=== PATIENT | male | born 1990 | race Caucasian/White ===

== ENCOUNTER 2021-09-11 20:08 | Emergency (ER) | payer SELFPAY ==
[~2021-09-11] VITALS: Ht 73 cm; Wt 72.6 kg
[2021-09-11] MEDS ORDERED: AMOXICILLIN 500 MG (POLYMOX) CAP PO STA (20:24)
[2021-09-11] MEDS ORDERED: ONDANSETRON 4 MG (ZOFRAN) ORAL DISSOLVE TAB SL STA (20:24)
[2021-09-11] MEDS ORDERED: KETOROLAC 60 MG/2 ML VIAL IM STA (20:24)
--- NOTE | 2021-09-11 20:32 | ED EENT ---
History of Present Illness General Chief Complaint: Dental Problems/Pain Stated Complaint: DENTAL PAIN/JAW PAIN/HEADACHE/NAUSEA Source: patient Exam Limitations: no limitations History of Present Illness Date Seen by Provider: Sep 11, 2021 Time Seen by Provider: 20:17 Initial Comments Here with complaint of right sided lower jaw posterior pain near the wisdom tooth that is now radiating up towards the judaism. Is associated with nausea due to the pain. He did take 2 ibuprofen about 5 hours ago and states that that did help the pain. Does have ongoing problems with his teeth and gum disease. Recently moved back here from [place] and is working at [employer]. Denies allergies to medicines. Takes an antianxiety medicine intermittently but has no new prescriptions for that for last couple of years. Otherwise does not take any other medicines. He knows he needs to follow with a dentist and will work on that. Denies other concerns. Timing/Duration: gradual, this morning Severity: moderate Location: mouth, dental Prearrival Treatment: over the counter meds Associated Symptoms: No drooling, No ear drainage, No fever, No nasal congestion/drainage, No sinus infection; tooth pain Allergies and Home Medications Allergies Coded Allergies: No Known Drug Allergies (Unverified , 09/11/21) Patient Home Medication List Home Medication List Reviewed: Yes Review of Systems Review of Systems Constitutional: No chills, No fever Ears: See HPI Nose: denies congestion, denies pain Mouth: see HPI, pain Throat: no symptoms reported Respiratory: No cough, No short of breath Gastrointestinal: nausea; No vomiting Neurological: See HPI Past Parxncf-Nhejbn-Htdprc Hx Patient Social History Tobacco Use?: No Use of E-Cig and/or Vaping dev: No Substance use?: Yes Substance type: Marijuana Substance frequency: Once in a while Past Medical History Surgeries: No Respiratory: No Cardiac: No Neurological: No Psychosocial: Yes Anxiety Family Medical History Reviewed and Corrections made No Pertinent Family Hx Physical Exam Height, Weight, BMI Height: '" Weight: lbs. oz. kg; BMI Method: General Appearance: WD/WN, no apparent distress Mouth/Throat: pharynx normal, dental tenderness (Right lower posterior near wisdom tooth.), other (Does have some erythema from around the tooth along the gumline and intermittently throughout teeth. No significant dental caries noted. No abscess or purulent drainage noted.) Neck: full range of motion, supple Cardiovascular: regular rate, rhythm, no murmur Respiratory: lungs clear, normal breath sounds Neurologic/Psychiatric: alert, oriented x 3 Skin: normal color, warm/dry Progress/Results/Core Measures Results/Orders My Orders Orders - PERLA SEPULVEDA MD Toradol 60 Mg Im (09/11/21 20:24) Zofran Sl (09/11/21 20:24) Amoxicillin 1000mg Po (09/11/21 20:24) Progress Progress Note : Progress Note Seen and evaluated. Patient with nausea currently. Zofran 4 mg sublingual. Amoxicillin 1000 mg p.o. Toradol 60 mg IM ordered. I did discuss with him the importance of follow-up with a dentist which she states he will. Discharged home with return precautions. Patient verbalized understanding of instructions and agreement with plan. Departure Impression Primary Impression: Acute pericoronitis Additional Impression: Pain, dental Disposition: 01 HOME, SELF-CARE Condition: Stable Departure-Patient Inst. Decision time for Depature: 20:34 Referrals: NO,LOCAL PHYSICIAN (PCP/Family) Primary Care Physician Patient Instructions: Dental Pain ED, Gingivitis (DC) Add. Discharge Instructions: All discharge instructions reviewed with patient and/or family. Voiced understanding. You may take ibuprofen 600 mg every 8 hours as needed for pain. You may also take Tylenol/acetaminophen 1000 mg every 8 hours as needed for pain. You may rinse with salt water 2-3 times daily. You may mix salt water solution by using 1 teaspoon of salt in 1 cup of water. Swish for 30 seconds and then spit. Do not drink solution. It is very important that you follow-up with a dentist. Take medications as directed. Return for worse pain, swelling, weakness, breathing problems or other concerns as needed. Scripts Amoxicillin (Amoxicillin) 500 Mg Capsule 500 MG PO TID, #30 CAP 0 Refills Prov: PERLA SEPULVEDA MD 09/11/21 PERLA SEPULVEDA MD Sep 11, 2021 20:32
[2021-09-11] MEDS ORDERED: AMOX500C2 PO (20:35)
[2021-09-11 20:48] VITALS: BP 145/108
== END 2021-09-11 20:49 | disposition home or self-care (01) ==
LOC: ER 20:12
DX: K05.20 Aggressive periodontitis, unspecified (principal); K08.89 Other specified disorders of teeth and supporting structures; F41.9 Anxiety disorder, unspecified; Z79.899 Other long term (current) drug therapy
CPT/HCPCS: 99284

== ENCOUNTER 2021-11-16 16:13 | Emergency (ER) | payer SELFPAY ==
[~2021-11-16] VITALS: Ht 187 cm; Wt 72.7 kg
[2021-11-16 16:13] VITALS: BP 139/94
[~2021-11-16 16:13] MED LIST: AMOX500C2 PO
--- NOTE | 2021-11-16 16:23 | ED General ---
General Stated Complaint: WEAKNESS LOW BLOOD SUGAR History of Present Illness Date Seen by Provider: Nov 16, 2021 Time Seen by Provider: 16:12 Initial Comments 31-year-old male presents by EMS he was in bed and unable to get out of bed, without assistance. EMS was called and his glucose was 37. D10 was started by IV and Glucose at ED arrival was 166. His father is diabetic, he has had no history of hyper or hypoglycemia. He reports drinking a pint of vodka this morning when he awoke, he didn't eat anything and went back to bed. Last food intake was pizza at 2100 last pm. He had no other liquid intake today. He reports history of alcoholism, with daily drinking. He was alert and oriented but weak when EMS arrived to transport. He is alert and answering all questions appropriately. Patient reports polyuria and polydipsia however denies polyphagia. He recently moved back to this area from [place] and was moving boxes most of yesterday. Timing/Duration: 1-3 Hours Severity: Mild Associated Systoms: No Chest Pain, No Cough; Diaphoresis; No Fever/Chills, No Headaches, No Loss of Appetite; Malaise; No Nausea/Vomiting, No Rash, No Seizure, No Shortness of Air, No Syncope; Weakness (improving. ) Allergies and Home Medications Allergies Coded Allergies: No Known Drug Allergies (Unverified , 09/11/21) Patient Home Medication List Home Medication List Reviewed: Yes Amoxicillin (Amoxicillin) 500 Mg Capsule, 500 MG PO TID Prescribed by: PERLA SEPULVEDA on 09/11/212034 Review of Systems Review of Systems Constitutional: see HPI; No dizziness, No fever; malaise, weakness EENTM: see HPI, no symptoms reported Respiratory: no symptoms reported, see HPI Cardiovascular: no symptoms reported, see HPI Gastrointestinal: no symptoms reported, see HPI Genitourinary: no symptoms reported, see HPI Musculoskeletal: no symptoms reported, see HPI Skin: no symptoms reported, see HPI All Other Systems Reviewed Negative Unless Noted: Yes Past Eunvrcx-Icpatr-Kktlyd Hx Immunizations Up To Date First/Initial COVID19 Vaccinat: 05/05 Past Medical History Surgeries: No Respiratory: No Cardiac: No Neurological: No Psychosocial: Yes Anxiety Family Medical History Reviewed Nursing Family Hx No Pertinent Family Hx Physical Exam Vital Signs Vital Signs - First Documented 11/16/21 16:13 Temp 35.2 Pulse 87 Resp 18 B/P (MAP) 139/94 (109) Pulse Ox 99 O2 Delivery Room Air Capillary Refill : Height, Weight, BMI Height: '" Weight: lbs. oz. kg; 136.00 BMI Method: General Appearance: No Apparent Distress, WD/WN HEENT: PERRL/EOMI, TMs Normal, Normal ENT Inspection, Pharynx Normal, Moist Mucous Membranes Neck: Full Range of Motion, Normal Inspection, Non Tender, Supple Respiratory: Chest Non Tender, Lungs Clear, Normal Breath Sounds Cardiovascular: Regular Rate, Rhythm, No Edema, No Murmur, Normal Peripheral Pulses Gastrointestinal: Normal Bowel Sounds, Non Tender, Soft Neurologic/Psychiatric: Alert, Oriented x3, No Motor/Sensory Deficits, Normal Mood/Affect Skin: Normal Color, Warm/Dry Progress/Results/Core Measures Suspected Sepsis SIRS Temperature: Pulse: Respiratory Rate: Laboratory Tests 11/16/21 16:25: White Blood Count 15.7H Blood Pressure / Mean: Laboratory Tests 11/16/21 16:25: Creatinine 0.89, Platelet Count 184, Total Bilirubin 0.4 Results/Orders Lab Results Laboratory Tests Test 11/16/21 16:24 11/16/21 16:25 11/16/21 16:35 11/16/21 17:55 Range/Units Glucometer 216 H 315 H 70-110 MG/DL White Blood Count 15.7 H 4.3-11.0 10^3/uL Red Blood Count 5.01 4.30-5.52 10^6/uL Hemoglobin 15.8 13.3-17.7 g/dL Hematocrit 47 40-54 % Mean Corpuscular Volume 94 80-99 fL Mean Corpuscular Hemoglobin 32 25-34 pg Mean Corpuscular Hemoglobin Concent 34 32-36 g/dL Red Cell Distribution Width 13.3 10.0-14.5 % Platelet Count 184 130-400 10^3/uL Mean Platelet Volume 10.0 9.0-12.2 fL Immature Granulocyte % (Auto) 1 % Neutrophils (%) (Auto) 85 H 42-75 % Lymphocytes (%) (Auto) 10 L 12-44 % Monocytes (%) (Auto) 3 0-12 % Eosinophils (%) (Auto) 0 0-10 % Basophils (%) (Auto) 0 0-10 % Neutrophils # (Auto) 13.4 H 1.8-7.8 10^3/uL Lymphocytes # (Auto) 1.6 1.0-4.0 10^3/uL Monocytes # (Auto) 0.5 0.0-1.0 10^3/uL Eosinophils # (Auto) 0.1 0.0-0.3 10^3/uL Basophils # (Auto) 0.1 0.0-0.1 10^3/uL Immature Granulocyte # (Auto) 0.1 0.0-0.1 10^3/uL Neutrophils % (Manual) 88 % Lymphocytes % (Manual) 9 % Monocytes % (Manual) 3 % Blood Morphology Comment NORMAL Sodium Level 141 135-145 MMOL/L Potassium Level 4.0 3.6-5.0 MMOL/L Chloride Level 100 98-107 MMOL/L Carbon Dioxide Level 21 21-32 MMOL/L Anion Gap 20 H 5-14 MMOL/L Blood Urea Nitrogen 10 7-18 MG/DL Creatinine 0.89 0.60-1.30 MG/DL Estimat Glomerular Filtration Rate 98 BUN/Creatinine Ratio 11 Glucose Level 218 H 70-105 MG/DL Calcium Level 8.4 L 8.5-10.1 MG/DL Corrected Calcium 8.0 L 8.5-10.1 MG/DL Total Bilirubin 0.4 0.1-1.0 MG/DL Aspartate Amino Transf (AST/SGOT) 30 5-34 U/L Alanine Aminotransferase (ALT/SGPT) 28 0-55 U/L Alkaline Phosphatase 74 40-136 U/L Total Protein 7.1 6.4-8.2 GM/DL Albumin 4.5 3.2-4.5 GM/DL Serum Alcohol 239 H <10 MG/DL Urine Color YELLOW Urine Clarity CLEAR Urine pH 5.5 5-9 Urine Specific [place] 1.025 H 1.016-1.022 Urine Protein NEGATIVE NEGATIVE Urine Glucose (UA) 3+ H NEGATIVE Urine Ketones 2+ H NEGATIVE Urine Nitrite NEGATIVE NEGATIVE Urine Bilirubin NEGATIVE NEGATIVE Urine Urobilinogen 0.2 < = 1.0 MG/DL Urine Leukocyte Esterase NEGATIVE NEGATIVE Urine RBC (Auto) NEGATIVE NEGATIVE Urine RBC NONE /HPF Urine WBC 0-2 /HPF Urine Squamous Epithelial Cells RARE /HPF Urine Renal Epithelial Cells NONE /HPF Urine Crystals NONE /LPF Urine Bacteria NEGATIVE /HPF Urine Casts NONE /LPF Urine Mucus NEGATIVE /LPF Urine Culture Indicated NO Urine Opiates Screen NEGATIVE NEGATIVE Urine Oxycodone Screen NEGATIVE NEGATIVE Urine Methadone Screen NEGATIVE NEGATIVE Urine Propoxyphene Screen NEGATIVE NEGATIVE Urine Barbiturates Screen NEGATIVE NEGATIVE Ur Tricyclic Antidepressants Screen NEGATIVE NEGATIVE Urine Phencyclidine Screen NEGATIVE NEGATIVE Urine Amphetamines Screen NEGATIVE NEGATIVE Urine Methamphetamines Screen NEGATIVE NEGATIVE Urine Benzodiazepines Screen NEGATIVE NEGATIVE Urine Cocaine Screen NEGATIVE NEGATIVE Urine Cannabinoids Screen POSITIVE H NEGATIVE My Orders Orders - [employer] Alcohol (11/16/21 16:23) Cbc With Automated Diff (11/16/21 16:23) Comprehensive Metabolic Panel (11/16/21 16:23) Drug Screen Stat (Urine) (11/16/21 16:23) Ua Culture If Indicated (11/16/21 16:23) Ed Iv/Invasive Line Start (11/16/21 16:24) D5 1/2 Ns 1000 Ml Iv Solution (Dextrose (11/16/21 16:30) Manual Differential (11/16/21 16:25) Accucheck Stat ONCE (11/16/21 17:48) Medications Given in ED Current Medications Medications Dose Ordered Sig/Moi Route Start Time Stop Time Status Last Admin Dose Admin Dextrose/Sodium Chloride 1,000 ml @ 0 mls/hr ONCE ONCE IV 11/16/21 16:30 11/16/21 16:31 DC 11/16/21 17:08 1,000 MLS/HR Vital Signs/I&O 11/16/21 11/16/21 16:13 18:11 Temp 35.2 Pulse 87 76 Resp 18 18 B/P (MAP) 139/94 (109) Pulse Ox 99 99 O2 Delivery Room Air Room Air Capillary Refill : Progress Note : Time: 16:12 Progress Note Patient seen and evaluated, will discontinue the D10 since his blood sugar has improved. He is alert and oriented. Will obtain labs. He is taking water with no complaints. 1740 labs reviewed with patient. He denies any concerns at this time. He received 500 ml of D51/2 NS and accucheck is 315. Discussed importance of establishing with PCP and assuring he is eating, when consuming alcohol discharge instructions and return precautions reviewed. Departure Impression Primary Impression: Hypoglycemia Additional Impression: Alcohol dependence Qualified Codes: F10.20 - Alcohol dependence, uncomplicated Disposition: 01 HOME, SELF-CARE Condition: Improved Departure-Patient Inst. Decision time for Depature: 17:40 Referrals: [facility]/RITA BENITEZ,LOCAL PHYSICIAN (PCP) Primary Care Physician Patient Instructions: Alcohol Use Disorder (DC), Low Blood Sugar, Adult (DC) Add. Discharge Instructions: Make sure you eat small, frequent meals. Especially when drinking alcohol. Establish care with [facility]. Return to the Emergency Dept for new, urgent health care needs. MANSOOR VALVERDE Nov 16, 2021 16:23
[2021-11-16] MEDS ORDERED: D5 1/2 NS 1000 ML IV SOLUTION 1,000 ML IV ONE (16:30)
[2021-11-16 16:40] LABS: BILIRUBIN,URINE NEGATIVE (NEGATIVE); CLARITY,URINE CLEAR; COLOR,URINE YELLOW; GLUCOSE, URINE (UA) 3+ (NEGATIVE); KETONES,URINE 2+ (NEGATIVE); LEUKOCYTE ESTERASE ,URINE NEGATIVE (NEGATIVE); NITRITE,URINE NEGATIVE (NEGATIVE); PH,URINE 5.5 (5-9); PROTEIN,URINE NEGATIVE (NEGATIVE)
[2021-11-16 16:43] LABS: BASOPHILS # (AUTO) 0.1 10^3/uL (0.0-0.1); BASOPHILS % (AUTO) 0 % (0-10); EOSINOPHILS # (AUTO) 0.1 10^3/uL (0.0-0.3); EOSINOPHILS % (AUTO) 0 % (0-10); HEMATOCRIT 47 % (40-54); HEMOGLOBIN 15.8 g/dL (13.3-17.7); LYMPHOCYTES # (AUTO) 1.6 10^3/uL (1.0-4.0); LYMPHOCYTES % (AUTO) 10 % (12-44); MEAN CORPUSCULAR HEMOGLOBIN 32 pg (25-34); MEAN CORPUSCULAR HGB CONC 34 g/dL (32-36); MEAN CORPUSCULAR VOLUME 94 fL (80-99); MONOCYTES # (AUTO) 0.5 10^3/uL (0.0-1.0); MONOCYTES % (AUTO) 3 % (0-12); NEUTROPHILS # (AUTO) 13.4 10^3/uL (1.8-7.8); NEUTROPHILS % (AUTO) 85 % (42-75); PLATELET COUNT 184 10^3/uL (130-400); WHITE BLOOD COUNT 15.7 10^3/uL (4.3-11.0)
[2021-11-16 16:44] LABS: ALBUMIN 4.5 GM/DL (3.2-4.5)
[2021-11-16 16:46] LABS: CALCIUM 8.4 MG/DL (8.5-10.1)
[2021-11-16 16:47] LABS: BACTERIA,URINE NEGATIVE /HPF; SQUAMOUS EPITHELIAL CELL,UR RARE /HPF; WBC,URINE 0-2 /HPF
[2021-11-16 16:47] LABS: TOTAL PROTEIN 7.1 GM/DL (6.4-8.2)
[2021-11-16 16:48] LABS: BILIRUBIN,TOTAL 0.4 MG/DL (0.1-1.0)
[2021-11-16 16:50] LABS: CREATININE SERUM 0.89 MG/DL (0.60-1.30)
[2021-11-16 16:51] LABS: AMPHETAMINE SCREEN, URINE NEGATIVE (NEGATIVE); BARBITURATE SCREEN URINE NEGATIVE (NEGATIVE); BENZODIAZEPINES SCREEN URINE NEGATIVE (NEGATIVE); CANNABINOID SCREEN, URINE POSITIVE (NEGATIVE); COCAINE SCREEN URINE NEGATIVE (NEGATIVE); METHADONE STAT NEGATIVE (NEGATIVE); METHAMPHETAMINE SCREEN URINE S NEGATIVE (NEGATIVE); OPIATE SCREEN URINE NEGATIVE (NEGATIVE); OXYCODONE STAT NEGATIVE (NEGATIVE); PROPOXYPHENE STAT NEGATIVE (NEGATIVE); TRICYCLIC ANTIDEPRESSANTS SCRE NEGATIVE (NEGATIVE)
[2021-11-16 17:00] LABS: LYMPHOCYTES % (MANUAL) 9 %; MONOCYTES % (MANUAL) 3 %; NEUTROPHILS % (MANUAL) 88 %; RBC MORPH NORMAL
== END 2021-11-16 18:11 | disposition home or self-care (01) ==
LOC: EDUNIT# 16:13 → ER 16:14
DX: E16.2 Hypoglycemia, unspecified (principal); F10.20 Alcohol dependence, uncomplicated
CPT/HCPCS: 80053; 80306; 81000; 82947; 85007; 85027; 99284; G0480; 36415; 80320

== ENCOUNTER → 2022-04-27 | Emergency (ER) | payer SELFPAY ==
[~2022-04-27] MED LIST changes: +LACTATED RINGERS 1,000 ML IV ONE; +LORA-404 PO; +LORazepam 0.5 MG (ATIVAN) TABLET PO STA; +LORazepam INJ 2 MG/ML (ATIVAN) VIAL IVP ONE; +MIRT-68 PO; +NS IV 1000 ML 1,000 ML IV SCH; +NS IV 1000 ML 1,000 ML IV STA; +OLANZapine 5 MG ODT (ZyPREXA ZYDIS) PO ONE; +hydrOXYzine (ATARAX) 10 MG TAB PO ONE; +hydrOXYzine (VISTARIL/ATARAX) 25 MG capsule/tablet PO STA
--- NOTE | 2022-04-27 22:13 | ED Psychosocial ---
General Chief Complaint: Suicidal Ideation Risk Stated Complaint: ETOH/SUICIDAL Source: patient Exam Limitations: no limitations (CANDIE SIN) History of Present Illness Date Seen by Provider: Apr 27, 2022 Time Seen by Provider: 22:11 Initial Comments Patient is a 31-year-old male who presents ED with alcohol abuse, anxiety and increased depression. Patient reports drinking a pint of vodka today. Reports daily drinking. he states he has had this "buzzing sensation" and "crushing sensation" all day. Patient reports he wants to drink himself to . Increased depression over the past few days. Patient states he feels anxious. Has not slept since yesterday. Patient not currently taking his medication for depression, anxiety or for his alcohol detox. Reports history of withdrawal symptoms of tremoring and anxiety. Denies historyof withdrawal seizures. Denies any current chest pain, abdominal pain, vomiting, diarrhea, headache, dizziness. Denies of any homicidal ideations. Denies of any drug use. Patient is voluntary inpatient. (CANDIE SIN) Allergies and Home Medications Allergies Coded Allergies: No Known Drug Allergies (Unverified , 09/11/21) Patient Home Medication List Home Medication List Reviewed: Yes (CANDIE SIN) Amoxicillin (Amoxicillin) 500 Mg Capsule, 500 MG PO TID Prescribed by: PERLA SEPULVEDA on 09/11/212034 Review of Systems Constitutional: No chills, No diaphoresis, No malaise, No weakness EENTM: No hearing loss, No blurred vision, No double vision Respiratory: No cough Cardiovascular: No chest pain, No edema Gastrointestinal: No diarrhea, No nausea, No vomiting Genitourinary: No decreased output, No discharge Musculoskeletal: No back pain, No joint pain, No muscle pain, No muscle stiffness Skin: No change in color Psychiatric/Neurological: Anxiety, Other (SI) (CANDIE SIN) All Other Systems Reviewed Negative Unless Noted: Yes (CANDIE SIN) Past Rwcucfn-Lfdmgo-Fzympn Hx Immunizations Up To Date First/Initial COVID19 Vaccinat: UNKNOW DATE. (CANDIE SIN) Past Medical History Surgeries: No Respiratory: No Cardiac: No Neurological: No Psychosocial: Yes Anxiety (CANDIE SIN) Family Medical History No Pertinent Family Hx (CANDIE SIN) Physical Exam Vital Signs - First Documented 04/27/22 21:45 Temp 37.0 Pulse 120 Resp 20 B/P (MAP) 148/114 (125) Pulse Ox 98 O2 Delivery Room Air (CANDIE SMITH MD) Capillary Refill : (CANDIE SIN) Height, Weight, BMI Height: '" Weight: lbs. oz. kg; 20.00 BMI Method: General Appearance: WD/WN, mild distress, other (Anxious) HEENT: PERRL/EOMI, normal ENT inspection, TMs normal Neck: non-tender, full range of motion, supple, normal inspection Respiratory: chest non-tender, lungs clear, normal breath sounds, no respiratory distress, no accessory muscle use Cardiovascular: regular rate, rhythm, no edema, no gallop, no JVD Gastrointestinal: normal bowel sounds, non tender, soft, no organomegaly Extremities: normal range of motion, non-tender, normal inspection, no pedal edema Neurologic/Psychiatric: package crimper II-XII nml as tested, no motor/sensory deficits, alert, normal mood/affect, oriented x 3 Behavior/Eye Contact: cooperative Thoughts/Hallucinations: other (Suicidal thoughts) Skin: normal color, warm/dry (CANDIE SIN) Progress/Results/Core Measures Results/Orders Lab Results Laboratory Tests Test 04/27/22 21:58 04/27/22 22:20 04/27/22 23:33 Range/Units Urine Color YELLOW Urine Clarity CLEAR Urine pH 6.0 5-9 Urine Specific [place] <=1.005 1.016-1.022 Urine Protein NEGATIVE NEGATIVE Urine Glucose (UA) NEGATIVE NEGATIVE Urine Ketones NEGATIVE NEGATIVE Urine Nitrite NEGATIVE NEGATIVE Urine Bilirubin NEGATIVE NEGATIVE Urine Urobilinogen 0.2 < = 1.0 MG/DL Urine Leukocyte Esterase NEGATIVE NEGATIVE Urine RBC (Auto) NEGATIVE NEGATIVE Urine RBC NONE /HPF Urine WBC RARE /HPF Urine Squamous Epithelial Cells NONE /HPF Urine Renal Epithelial Cells NONE /HPF Urine Crystals NONE /LPF Urine Bacteria NEGATIVE /HPF Urine Casts NONE /LPF Urine Mucus NEGATIVE /LPF Urine Culture Indicated NO Urine Opiates Screen NEGATIVE NEGATIVE Urine Oxycodone Screen NEGATIVE NEGATIVE Urine Methadone Screen NEGATIVE NEGATIVE Urine Propoxyphene Screen NEGATIVE NEGATIVE Urine Barbiturates Screen NEGATIVE NEGATIVE Ur Tricyclic Antidepressants Screen NEGATIVE NEGATIVE Urine Phencyclidine Screen NEGATIVE NEGATIVE Urine Amphetamines Screen NEGATIVE NEGATIVE Urine Methamphetamines Screen NEGATIVE NEGATIVE Urine Benzodiazepines Screen NEGATIVE NEGATIVE Urine Cocaine Screen NEGATIVE NEGATIVE Urine Cannabinoids Screen POSITIVE H NEGATIVE White Blood Count 6.1 4.3-11.0 10^3/uL Red Blood Count 5.47 4.30-5.52 10^6/uL Hemoglobin 17.2 13.3-17.7 g/dL Hematocrit 48 40-54 % Mean Corpuscular Volume 89 80-99 fL Mean Corpuscular Hemoglobin 31 25-34 pg Mean Corpuscular Hemoglobin Concent 36 32-36 g/dL Red Cell Distribution Width 12.4 10.0-14.5 % Platelet Count 267 130-400 10^3/uL Mean Platelet Volume 9.4 9.0-12.2 fL Immature Granulocyte % (Auto) 0 % Neutrophils (%) (Auto) 48 42-75 % Lymphocytes (%) (Auto) 39 12-44 % Monocytes (%) (Auto) 11 0-12 % Eosinophils (%) (Auto) 1 0-10 % Basophils (%) (Auto) 1 0-10 % Neutrophils # (Auto) 3.0 1.8-7.8 10^3/uL Lymphocytes # (Auto) 2.4 1.0-4.0 10^3/uL Monocytes # (Auto) 0.7 0.0-1.0 10^3/uL Eosinophils # (Auto) 0.1 0.0-0.3 10^3/uL Basophils # (Auto) 0.0 0.0-0.1 10^3/uL Immature Granulocyte # (Auto) 0.0 0.0-0.1 10^3/uL Sodium Level 142 135-145 MMOL/L Potassium Level 3.6 3.6-5.0 MMOL/L Chloride Level 100 98-107 MMOL/L Carbon Dioxide Level 23 21-32 MMOL/L Anion Gap 19 H 5-14 MMOL/L Blood Urea Nitrogen 8 7-18 MG/DL Creatinine 0.85 0.60-1.30 MG/DL Estimat Glomerular Filtration Rate 118 BUN/Creatinine Ratio 9 Glucose Level 96 70-105 MG/DL Calcium Level 8.8 8.5-10.1 MG/DL Corrected Calcium 8.5-10.1 MG/DL Total Bilirubin 0.3 0.1-1.0 MG/DL Aspartate Amino Transf (AST/SGOT) 57 H 5-34 U/L Alanine Aminotransferase (ALT/SGPT) 46 0-55 U/L Alkaline Phosphatase 91 40-136 U/L Total Protein 7.6 6.4-8.2 GM/DL Albumin 4.9 H 3.2-4.5 GM/DL Salicylates Level < 5.0 L 5.0-20.0 MG/DL Acetaminophen Level < 10 L 10-30 UG/ML Serum Alcohol 385 *H <10 MG/DL Influenza Type A (RT-PCR) Not Detected Not Detecte Influenza Type B (RT-PCR) Not Detected Not Detecte SARS-CoV-2 RNA (RT-PCR) Not Detected Not Detecte (CANDIE SMITH MD) My Orders Orders - CANDIE SMITH MD Ua Culture If Indicated (04/27/22 21:50) Cbc With Automated Diff (04/27/22 21:50) Comprehensive Metabolic Panel (04/27/22 21:50) Alcohol (04/27/22 21:50) Drug Screen Stat (Urine) (04/27/22 21:50) Acetaminophen (04/27/22 21:50) Salicylate (04/27/22 21:50) Ekg Tracing (04/27/22 21:50) Ed Iv/Invasive Line Start (04/27/22 21:50) Monitor-Rhythm Ecg Trace Only (04/27/22 21:50) Ed Iv/Invasive Line Start (04/27/22 21:50) Ns Iv 1000 Ml (Sodium Chloride 0.9%) (04/27/22 22:00) Ns Iv 1000 Ml (Sodium Chloride 0.9%) (04/27/22 23:10) Olanzapine Orally Dissolve Tab (Zyprexa (04/28/22 00:30) Hydroxyzine Oral (Atarax Tablet) (04/28/22 00:30) Disposal Tray - Plastic-Paper (04/28/22 Breakfast) Alcohol (04/28/22 06:00) (CANDIE SMITH MD) Medications Given in ED Current Medications Medications Dose Ordered Sig/Moi Route Start Time Stop Time Status Last Admin Dose Admin Hydroxyzine HCl 20 mg ONCE ONCE PO 04/28/22 00:30 04/28/22 00:31 DC 04/28/22 00:34 20 MG Lorazepam 1 mg ONCE ONCE IVP 04/27/22 22:30 04/27/22 22:31 DC 04/27/22 22:27 1 MG Olanzapine 10 mg ONCE ONCE PO 04/28/22 00:30 04/28/22 00:31 DC 04/28/22 00:33 10 MG (CANDIE SMITH MD) Vital Signs/I&O 04/27/22 04/28/22 21:45 00:05 Temp 37.0 37.0 Pulse 120 100 Resp 20 20 B/P (MAP) 148/114 (125) 143/94 Pulse Ox 98 97 O2 Delivery Room Air Room Air 04/28/22 00:00 Intake Total 1000 ml Balance 1000 ml (CANDIE SMITH MD) Progress Progress Note : Progress Note Received this patient in signout. He had an alcohol level greater than 300 on arrival. He was saying he wanted to drink until he was no longer alive and was suicidal. Unfortunately, our mental health screeners would not screen anyone unless there level is less than 80. We will redraw him in the morning given based on metabolism and should take anywhere between 12 to 24 hours to get to that level. He did well throughout the night and I personally evaluated him numerous times and he never showed any signs of withdrawal. He says he used to be on medicines for anxiety, and believes he possibly was on mirtazapine before. He is unsure, however, what medicine he was exactly on. He was given p.o. Zyprexa with improvement in symptoms. He will be signed out to the oncoming physician. At the time of leaving the shift, the patient is clinically sober. (CANDIE SMITH MD) Progress Note #1: Time: 12:39 Progress Note Patient's most recent blood alcohol level still did not qualify him for a behavioral health screening. He is receiving another liter of IV fluids and we will check his alcohol level again at 1300. I discussed the situation with the patient. He is getting quite agitated and nervous. He was given hydroxyzine but symptoms persisted. He may be developing some withdrawal combined with anxiety. We discussed his suicidal ideation. He expresses to me that he does not feel safe to return home. He believes he needs to be balanced on his medications before he can safely return home. Progress Note #2: Time: 14:07 Progress Note Patient has calm down considerably with the Ativan but is still alert. Blood alcohol level is now 55 and he is eligible for the behavioral health screen. (DEVEN MARSH MD) Comment Sinus rhythm, 93 bpm, QRS duration 85 MS, QTc 399 MS (CANDIE SIN) Departure Impression Primary Impression: Alcohol intoxication Qualified Codes: F10.920 - Alcohol use, unspecified with intoxication, uncomplicated Additional Impressions: Suicidal ideations Alcohol withdrawal Qualified Codes: F10.239 - Alcohol dependence with withdrawal, unspecified Anxiety Disposition: 01 HOME, SELF-CARE Condition: Improved Departure-Patient Inst. Decision time for Depature: 15:26 (DEVEN MARSH MD) Referrals: NO,LOCAL PHYSICIAN (PCP/Family) Primary Care Physician Patient Instructions: Alcohol Use Disorder (DC), Alcohol Withdrawal, OUTPT MENTAL HEALTH SERVICES Add. Discharge Instructions: Use your medications as prescribed. Do not use Ativan if you resume drinking alcohol. Use Ativan as directed for withdrawal symptoms and taper off. Avoid stopping alcohol abruptly without available medications to manage withdrawal symptoms under the direction of a doctor. Abrupt cessation of alcohol may cause severe withdrawal, seizures, and even . Follow-up with your primary care provider soon as possible. Follow the safety plan and follow-up instructions outlined by the [facility] staff. Call with questions or concerns, and return to the emergency room if you have worsening symptoms despite following these instructions. All discharge instructions reviewed with patient and/or family. Voiced understanding. Scripts Lorazepam (Ativan) 0.5 Mg Tablet 1-2 TAB PO Q4H PRN for ANXIETY, #8 TAB Taper down and use as needed for withdrawal symptoms such as tremor, anxiousness, rapid heart rate, etc. Prov: DEVEN MARSH MD 04/28/22 Mirtazapine (Mirtazapine) 15 Mg Tablet 15 MG PO HS, #15 TAB Prov: DEVEN MARSH MD 04/28/22 CANDIE SIN Apr 27, 2022 22:13 CANDIE SMITH MD Apr 28, 2022 05:22 DEVEN MARSH MD Apr 28, 2022 12:44
[2022-04-27 22:19] LABS: BILIRUBIN,URINE NEGATIVE (NEGATIVE); CLARITY,URINE CLEAR; COLOR,URINE YELLOW; GLUCOSE, URINE (UA) NEGATIVE (NEGATIVE); KETONES,URINE NEGATIVE (NEGATIVE); LEUKOCYTE ESTERASE ,URINE NEGATIVE (NEGATIVE); NITRITE,URINE NEGATIVE (NEGATIVE); PROTEIN,URINE NEGATIVE (NEGATIVE)
[2022-04-27 22:25] LABS: BACTERIA,URINE NEGATIVE /HPF; WBC,URINE RARE /HPF
[2022-04-27 22:27] LABS: AMPHETAMINE SCREEN, URINE NEGATIVE (NEGATIVE); BARBITURATE SCREEN URINE NEGATIVE (NEGATIVE); BENZODIAZEPINES SCREEN URINE NEGATIVE (NEGATIVE); CANNABINOID SCREEN, URINE POSITIVE (NEGATIVE); COCAINE SCREEN URINE NEGATIVE (NEGATIVE); METHADONE STAT NEGATIVE (NEGATIVE); OPIATE SCREEN URINE NEGATIVE (NEGATIVE); OXYCODONE STAT NEGATIVE (NEGATIVE); PROPOXYPHENE STAT NEGATIVE (NEGATIVE); TRICYCLIC ANTIDEPRESSANTS SCRE NEGATIVE (NEGATIVE)
[2022-04-27 22:30] LABS: BASOPHILS % (AUTO) 1 % (0-10); EOSINOPHILS # (AUTO) 0.1 10^3/uL (0.0-0.3); EOSINOPHILS % (AUTO) 1 % (0-10); HEMATOCRIT 48 % (40-54); HEMOGLOBIN 17.2 g/dL (13.3-17.7); LYMPHOCYTES # (AUTO) 2.4 10^3/uL (1.0-4.0); LYMPHOCYTES % (AUTO) 39 % (12-44); MEAN CORPUSCULAR HEMOGLOBIN 31 pg (25-34); MEAN CORPUSCULAR HGB CONC 36 g/dL (32-36); MEAN CORPUSCULAR VOLUME 89 fL (80-99); MEAN PLATELET VOLUME 9.4 fL (9.0-12.2); MONOCYTES # (AUTO) 0.7 10^3/uL (0.0-1.0); MONOCYTES % (AUTO) 11 % (0-12); NEUTROPHILS % (AUTO) 48 % (42-75); PLATELET COUNT 267 10^3/uL (130-400); WHITE BLOOD COUNT 6.1 10^3/uL (4.3-11.0)
[2022-04-27 22:42] LABS: CHLORIDE 100 MMOL/L (98-107); POTASSIUM 3.6 MMOL/L (3.6-5.0); SODIUM 142 MMOL/L (135-145)
[2022-04-27 22:43] LABS: ALBUMIN 4.9 GM/DL (3.2-4.5)
[2022-04-27 22:44] LABS: CALCIUM 8.8 MG/DL (8.5-10.1)
[2022-04-27 22:45] LABS: GLUCOSE 96 MG/DL (70-105); TOTAL PROTEIN 7.6 GM/DL (6.4-8.2)
[2022-04-27 22:46] LABS: CARBON DIOXIDE 23 MMOL/L (21-32)
[2022-04-27 22:47] LABS: BILIRUBIN,TOTAL 0.3 MG/DL (0.1-1.0)
[2022-04-27 22:49] LABS: ALKALINE PHOSPHATASE 91 U/L (40-136); CREATININE SERUM 0.85 MG/DL (0.60-1.30); GFR ESTIMATED 118
[2022-04-27 22:50] LABS: BUN/CREATININE RATIO 9
[2022-04-27 22:52] LABS: ALANINE AMINOTRANSFERASE 46 U/L (0-55); SALICYLATE < 5.0 MG/DL (5.0-20.0)
[2022-04-27 23:05] LABS: ACETAMINOPHEN < 10 UG/ML (10-30)
[2022-04-28 15:46] VITALS: BP 113/84
== END ==
LOC: EDUNIT# 21:42 → ER 21:43
DX: F10.239 Alcohol dependence with withdrawal, unspecified (principal); R45.851 Suicidal ideations; F41.9 Anxiety disorder, unspecified; F32.A Depression, unspecified; Z20.822 Contact with and (suspected) exposure to COVID-19; Y90.8 Blood alcohol level of 240 mg/100 ml or more
CPT/HCPCS: 80053; 80306; 81000; 85025; 87636; 93005; 99284; G0480 ×3; 36415; 80320; 80329

== ENCOUNTER 2022-10-20 09:56 | Emergency (ER) | payer SELFPAY ==
[~2022-10-20] VITALS: Ht 185 cm; Wt 71.5 kg
[~2022-10-20 09:56] MED LIST changes: -LACTATED RINGERS 1,000 ML IV ONE; -LORazepam 0.5 MG (ATIVAN) TABLET PO STA; -LORazepam INJ 2 MG/ML (ATIVAN) VIAL IVP ONE; -NS IV 1000 ML 1,000 ML IV SCH; -NS IV 1000 ML 1,000 ML IV STA; -OLANZapine 5 MG ODT (ZyPREXA ZYDIS) PO ONE; -hydrOXYzine (ATARAX) 10 MG TAB PO ONE; -hydrOXYzine (VISTARIL/ATARAX) 25 MG capsule/tablet PO STA
--- NOTE | 2022-10-20 10:51 | ED Abdominal Pain ---
General Chief Complaint: Abdominal/GI Problems Stated Complaint: NAUSEA | FEVER Nursing Triage Note: NVD FOR A COUPLE DAYS, HARD TO SWALLOW, THROAT PAIN, CHILLS Source of Information: Patient Exam Limitations: No Limitations History of Present Illness Date Seen by Provider: Oct 20, 2022 Time Seen by Provider: 10:40 Initial Comments Patient is a 32-year-old male who presents to the emergency room with a chief complaint of nausea, vomiting, generalized malaise and fatigue and a little diarrhea. Onset for 5 days ago. He states he has had a little bit of sore throat. Some chills. No measured temperature at home as he does not have a thermometer. Went to work today and his boss advised him to come in to "get checked out". Denies pain. Is not short of breath. No earache or runny nose. No COVID contacts or flu contacts. He states he is vaccinated for both. History of chronic alcohol abuse, sober 1 week. His vomiting was last , nonbloody. No bloody stools. Normal urinary output. All other review of systems reviewed and negative except as stated Timing/Duration: 4-5 Days Severity/Quality: Mild, Other ("bloated" feeling) Activities at Onset: None Associated Symptoms: Nausea/Vomiting Allergies and Home Medications Allergies Coded Allergies: No Known Drug Allergies (Unverified , 09/11/21) Patient Home Medication List Home Medication List Reviewed: Yes Amoxicillin (Amoxicillin) 500 Mg Capsule, 500 MG PO TID Prescribed by: PERLA SEPULVEDA on 09/11/212034 Lorazepam (Ativan) 0.5 Mg Tablet, 1-2 TAB PO Q4H PRN for ANXIETY Prescribed by: DEVEN SMYTH on 04/28/22 153 Mirtazapine (Mirtazapine) 15 Mg Tablet, 15 MG PO HS Prescribed by: DEVEN SMYTH on 04/28/22 1529 Review of Systems Review of Systems Constitutional: see HPI, malaise EENTM: Throat Pain (mild) Respiratory: No Symptoms Reported Cardiovascular: No Symptoms Reported Gastrointestinal: No Symptoms Reported Genitourinary: See HPI Musculoskeletal: no symptoms reported Skin: no symptoms reported Psychiatric/Neurological: No Symptoms Reported All Other Systems Reviewed Negative Unless Noted: Yes Past Uhymfhe-Rmdrgk-Thdydi Hx Patient Social History Tobacco Use?: Yes Use of E-Cig and/or Vaping dev: Yes E-Cig or Vaping type used: Nicotine Substance use?: Yes Substance type: Marijuana Alcohol Use?: Yes Immunizations Up To Date First/Initial COVID19 Vaccinat: [facility] J&J APPROX 1 YEAR AGO Second COVID19 Vaccination Elliot: [facility] J&J APPROX 1 YEAR AGO Third COVID19 Vaccination Date: [facility] J&J APPROX 1 YEAR AGO Past Medical History Surgery/Hospitalization HX: ANXIETY, DEPRESSION Surgeries: No Respiratory: No Cardiac: No Neurological: No Psychosocial: Yes Anxiety Family Medical History No Pertinent Family Hx Physical Exam Vital Signs Vital Signs - First Documented 10/20/22 10:01 Temp 36.7 Pulse 92 Resp 99 B/P (MAP) 169/115 (133) O2 Delivery Venturi Mask Capillary Refill : Less Than 3 Seconds Height/Weight/BMI Height: '" Weight: lbs. oz. kg; 20.00 BMI Method: General Appearance: WD/WN, no apparent distress HEENT: PERRL/EOMI, TMs normal, pharynx normal Neck: full range of motion, supple, normal inspection Respiratory: lungs clear, normal breath sounds, no respiratory distress, no accessory muscle use Cardiovascular: regular rate, rhythm Gastrointestinal: normal bowel sounds, non tender, soft Extremities: normal range of motion, normal inspection Neurologic/Psychiatric: alert, normal mood/affect, oriented x 3 Skin: normal color, warm/dry Progress/Results/Core Measures Results/Orders Lab Results Laboratory Tests Test 10/20/22 10:04 Range/Units Influenza Type A (RT-PCR) Not Detected Not Detecte Influenza Type B (RT-PCR) Not Detected Not Detecte SARS-CoV-2 RNA (RT-PCR) Not Detected Not Detecte My Orders Orders - YASMANY DAVID MD Covid 19 Inhouse Test (10/20/22 10:50) Influenza A And B By Pcr (10/20/22 10:50) Isolation Central Supply Req (10/20/22 10:50) Vital Signs/I&O 10/20/22 10/20/22 10:01 11:32 Temp 36.7 36.7 Pulse 92 87 Resp 99 99 B/P (MAP) 169/115 (133) 159/104 O2 Delivery Venturi Mask Room Air Blood Pressure Mean: 133 Departure Impression Primary Impression: Viral syndrome Disposition: 01 HOME, SELF-CARE Condition: Stable Departure-Patient Inst. Decision time for Depature: 11:26 Referrals: [facility],LOCAL PHYSICIAN (PCP) Primary Care Physician Patient Instructions: Viral Syndrome (DC) Add. Discharge Instructions: Drink plenty of fluids to stay well-hydrated. Pjbs-ica-pollgvq cough and cold medicine such as DayQuil or NyQuil as needed for symptoms. Generic ibuprofen 3 tablets which is 600 mg every 6 hours as needed for fever/body aches/pain. Always take ibuprofen with food. [facility]up [facility] for further healthcare needs. Attached you will find contact information for [facility] so that you can establish with a provider to maintain mental health needs. [facility] [address] [place] [address] [facility] [phone] [address] [place] [address] Get Immediate Help [email or web address] or Call [phone]) Work/School Note: Work Release Form Date Seen in the Emergency Department: Oct 20, 2022 Return to Work: Oct 21, 2022 YASMANY DAVID MD Oct 20, 2022 10:51
[2022-10-20 11:32] VITALS: BP 159/104
== END 2022-10-20 11:31 | disposition home or self-care (01) ==
LOC: EDUNIT# 09:56 → ER 09:58
DX: B34.9 Viral infection, unspecified (principal); R19.7 Diarrhea, unspecified; R11.2 Nausea with vomiting, unspecified; R53.83 Other fatigue; R53.81 Other malaise; F17.290 Nicotine dependence, other tobacco product, uncomplicated; Z20.822 Contact with and (suspected) exposure to COVID-19; Z28.311 Partially vaccinated for COVID-19
CPT/HCPCS: 87636; 99283

== ENCOUNTER 2022-11-08 06:17 | Emergency (ER) | payer SELFPAY ==
--- NOTE | 2022-11-08 06:42 | ED Psychosocial ---
General Stated Complaint: ANXIETY, SUICIDAL THOUGHTS Source: patient Exam Limitations: no limitations History of Present Illness Date Seen by Provider: Nov 08, 2022 Time Seen by Provider: 06:30 Initial Comments 32-year-old male presents to the emergency department today stating "I want to and I am tired of feeling like this." When asked, he states he has been feeling like this for years. He tells me he has been to the [facility] x2 in the past. He does not have any local psychiatrist or psychologist that he does that he has been trying to get into [facility]. He was supposed to be on 2 different medicines for anxiety and depression however he ran out a couple of months ago and has not had them since that time. He is also supposed to be on blood pressure medications but ran out of that is about the same time. He states he was contemplating hanging himself in his backyard from a tree. He has had suicidal thoughts in the past but has never acted on his pl an. He denies any medical concerns at this time. Allergies and Home Medications Allergies Coded Allergies: No Known Drug Allergies (Unverified , 09/11/21) Patient Home Medication List Home Medication List Reviewed: Yes Amoxicillin (Amoxicillin) 500 Mg Capsule, 500 MG PO TID Prescribed by: PERLA SEPULVEDA on 09/11/212034 Lorazepam (Ativan) 0.5 Mg Tablet, 1-2 TAB PO Q4H PRN for ANXIETY Prescribed by: DEVEN SMYTH on 04/28/22 153 Mirtazapine (Mirtazapine) 15 Mg Tablet, 15 MG PO HS Prescribed by: DEVEN SMYTH on 04/28/22 1529 Review of Systems Constitutional: no symptoms reported EENTM: no symptoms reported Respiratory: no symptoms reported Cardiovascular: no symptoms reported Gastrointestinal: no symptoms reported Genitourinary: no symptoms reported Musculoskeletal: no symptoms reported Skin: no symptoms reported Psychiatric/Neurological: Depressed Past Dkijwrj-Sxphdw-Hijxng Hx Patient Social History Tobacco Use?: Yes Use of E-Cig and/or Vaping dev: No Substance use?: No Alcohol Use?: No Immunizations Up To Date First/Initial COVID19 Vaccinat: [place] J&J APPROX 1 YEAR AGO Second COVID19 Vaccination Elliot: [facility] J&J APPROX 1 YEAR AGO Third COVID19 Vaccination Date: [place] J&J APPROX 1 YEAR AGO Past Medical History Surgery/Hospitalization HX: ANXIETY, DEPRESSION, HTN Surgeries: No Respiratory: No Cardiac: No Neurological: No Psychosocial: Yes Anxiety Family Medical History Reviewed Nursing Family Hx No Pertinent Family Hx Physical Exam Vital Signs - First Documented 11/08/22 06:30 Temp 36.6 Pulse 99 Resp 24 B/P (MAP) 141/114 (123) Pulse Ox 61 O2 Delivery Room Air Capillary Refill : Height, Weight, BMI Height: '" Weight: lbs. oz. kg; 20.00 BMI Method: General Appearance: WD/WN, no apparent distress HEENT: normal ENT inspection, pharynx normal Neck: non-tender, normal inspection Respiratory: lungs clear, normal breath sounds, no respiratory distress, no accessory muscle use Cardiovascular: regular rate, rhythm, no edema, no gallop, no JVD, no murmur Gastrointestinal: normal bowel sounds, non tender, soft, no organomegaly Extremities: non-tender, normal inspection, no pedal edema, no calf tenderness, normal capillary refill Neurologic/Psychiatric: alert, normal mood/affect, oriented x 3 Skin: normal color, warm/dry Lymphatic: no adenopathy Progress/Results/Core Measures Results/Orders Lab Results Laboratory Tests Test 11/08/22 06:52 11/08/22 11:22 11/08/22 14:20 Range/Units White Blood Count 11.1 H 4.3-11.0 10^3/uL Red Blood Count 5.14 4.30-5.52 10^6/uL Hemoglobin 16.1 13.3-17.7 g/dL Hematocrit 47 40-54 % Mean Corpuscular Volume 91 80-99 fL Mean Corpuscular Hemoglobin 31 25-34 pg Mean Corpuscular Hemoglobin Concent 34 32-36 g/dL Red Cell Distribution Width 14.1 10.0-14.5 % Platelet Count 288 130-400 10^3/uL Mean Platelet Volume 9.6 9.0-12.2 fL Immature Granulocyte % (Auto) 0 % Neutrophils (%) (Auto) 80 H 42-75 % Lymphocytes (%) (Auto) 16 12-44 % Monocytes (%) (Auto) 3 0-12 % Eosinophils (%) (Auto) 0 0-10 % Basophils (%) (Auto) 1 0-10 % Neutrophils # (Auto) 8.9 H 1.8-7.8 10^3/uL Lymphocytes # (Auto) 1.8 1.0-4.0 10^3/uL Monocytes # (Auto) 0.4 0.0-1.0 10^3/uL Eosinophils # (Auto) 0.0 0.0-0.3 10^3/uL Basophils # (Auto) 0.1 0.0-0.1 10^3/uL Immature Granulocyte # (Auto) 0.0 0.0-0.1 10^3/uL Urine Color YELLOW Urine Clarity CLEAR Urine pH 5.5 5-9 Urine Specific Depue >=1.030 1.016-1.022 Urine Protein NEGATIVE NEGATIVE Urine Glucose (UA) NEGATIVE NEGATIVE Urine Ketones 3+ H NEGATIVE Urine Nitrite NEGATIVE NEGATIVE Urine Bilirubin NEGATIVE NEGATIVE Urine Urobilinogen 0.2 < = 1.0 MG/DL Urine Leukocyte Esterase NEGATIVE NEGATIVE Urine RBC (Auto) NEGATIVE NEGATIVE Urine RBC NONE /HPF Urine WBC NONE /HPF Urine Squamous Epithelial Cells NONE /HPF Urine Crystals NONE /LPF Urine Bacteria NEGATIVE /HPF Urine Casts NONE /LPF Urine Mucus NEGATIVE /LPF Urine Culture Indicated NO Sodium Level 140 135-145 MMOL/L Potassium Level 4.3 3.6-5.0 MMOL/L Chloride Level 101 98-107 MMOL/L Carbon Dioxide Level 12 L 21-32 MMOL/L Anion Gap 27 H 5-14 MMOL/L Blood Urea Nitrogen 16 7-18 MG/DL Creatinine 0.89 0.60-1.30 MG/DL Estimat Glomerular Filtration Rate 115 BUN/Creatinine Ratio 18 Glucose Level 74 70-105 MG/DL Calcium Level 9.2 8.5-10.1 MG/DL Corrected Calcium 8.5-10.1 MG/DL Total Bilirubin 0.5 0.1-1.0 MG/DL Aspartate Amino Transf (AST/SGOT) 37 H 5-34 U/L Alanine Aminotransferase (ALT/SGPT) 39 0-55 U/L Alkaline Phosphatase 82 40-136 U/L Total Protein 7.9 6.4-8.2 GM/DL Albumin 5.2 H 3.2-4.5 GM/DL Salicylates Level < 5.0 L 5.0-20.0 MG/DL Urine Opiates Screen NEGATIVE NEGATIVE Urine Oxycodone Screen NEGATIVE NEGATIVE Urine Methadone Screen NEGATIVE NEGATIVE Urine Propoxyphene Screen NEGATIVE NEGATIVE Acetaminophen Level < 10 L 10-30 UG/ML Urine Barbiturates Screen NEGATIVE NEGATIVE Ur Tricyclic Antidepressants Screen NEGATIVE NEGATIVE Urine Phencyclidine Screen NEGATIVE NEGATIVE Urine Amphetamines Screen NEGATIVE NEGATIVE Urine Methamphetamines Screen NEGATIVE NEGATIVE Urine Benzodiazepines Screen NEGATIVE NEGATIVE Urine Cocaine Screen NEGATIVE NEGATIVE Urine Cannabinoids Screen POSITIVE H NEGATIVE Serum Alcohol 201 H 105 H 50 H <10 MG/DL SARS-CoV-2 RNA (RT-PCR) Not Detected Not Detecte My Orders Orders - MINERVA OBRIEN DO Ua Culture If Indicated (11/08/22 06:38) Cbc With Automated Diff (11/08/22 06:38) Comprehensive Metabolic Panel (11/08/22 06:38) Alcohol (11/08/22 06:38) Drug Screen Stat (Urine) (11/08/22 06:38) Acetaminophen (11/08/22 06:38) Salicylate (11/08/22 06:38) Ekg Tracing (11/08/22 06:38) Bh Status Checks/Observation O Q15M (11/08/22 06:38) Covid 19 Inhouse Test (11/08/22 06:38) Ondansetron Oral Solution (Zofran Oral S (11/08/22 07:30) General/Regular (11/08/22 Lunch) Alcohol (11/08/22 11:19) Hydroxyzine Cap/Tab (Vistaril) (11/08/22 11:30) Alcohol (11/08/22 14:05) Ondansetron Oral Dissolve Tab (Zofran (11/08/22 14:07) Medications Given in ED Current Medications Medications Dose Ordered Sig/Moi Route Start Time Stop Time Status Last Admin Dose Admin Hydroxyzine Pamoate 50 mg ONCE ONCE PO 11/08/22 11:30 11/08/22 11:31 DC 11/08/22 11:33 50 MG Ondansetron HCl 8 mg ONCE ONCE PO 11/08/22 07:30 11/08/22 07:31 DC 11/08/22 07:38 8 MG Vital Signs/I&O 11/08/22 11/08/22 06:30 11:30 Temp 36.6 36.7 Pulse 99 99 Resp 24 20 B/P (MAP) 141/114 (123) 139/96 (110) Pulse Ox 61 99 O2 Delivery Room Air Room Air EKG : Comment Sinus rhythm with rate of 91 bpm. Normal intervals. Normal axis. No ST or T wave abnormalities. No ectopy. No STEMI. Departure Communication (Admissions) The patient is hemodynamically stable with no medical concerns. There was a delay in screening due to his alcohol levels being significantly elevated. No screeners spoke with him at length and have deemed him safe for discharge home with a safety plan. He will go to stay with his parents is by understanding. Patient is COMFORTABLE agreeable to this plan of care and contracts for safety verbally is discharged home in stable condition. Impression Primary Impression: Depression Qualified Codes: F32.1 - Major depressive disorder, single episode, moderate Disposition: 01 HOME, SELF-CARE Condition: Stable Departure-Patient Inst. Referrals: NO,LOCAL PHYSICIAN (PCP/Family) Primary Care Physician Patient Instructions: Depression Add. Discharge Instructions: Maintain safety plan as previously recommended by mental health. Follow-up with [facility] on Wednesday. MINERVA OBRIEN DO Nov 08, 2022 06:42
[2022-11-08 07:01] LABS: BASOPHILS # (AUTO) 0.1 10^3/uL (0.0-0.1); BASOPHILS % (AUTO) 1 % (0-10); EOSINOPHILS % (AUTO) 0 % (0-10); HEMATOCRIT 47 % (40-54); HEMOGLOBIN 16.1 g/dL (13.3-17.7); LYMPHOCYTES # (AUTO) 1.8 10^3/uL (1.0-4.0); LYMPHOCYTES % (AUTO) 16 % (12-44); MEAN CORPUSCULAR HEMOGLOBIN 31 pg (25-34); MEAN CORPUSCULAR HGB CONC 34 g/dL (32-36); MEAN CORPUSCULAR VOLUME 91 fL (80-99); MEAN PLATELET VOLUME 9.6 fL (9.0-12.2); MONOCYTES # (AUTO) 0.4 10^3/uL (0.0-1.0); MONOCYTES % (AUTO) 3 % (0-12); NEUTROPHILS # (AUTO) 8.9 10^3/uL (1.8-7.8); NEUTROPHILS % (AUTO) 80 % (42-75); PLATELET COUNT 288 10^3/uL (130-400); WHITE BLOOD COUNT 11.1 10^3/uL (4.3-11.0)
[2022-11-08 07:12] LABS: BACTERIA,URINE NEGATIVE /HPF; BILIRUBIN,URINE NEGATIVE (NEGATIVE); CLARITY,URINE CLEAR; COLOR,URINE YELLOW; GLUCOSE, URINE (UA) NEGATIVE (NEGATIVE); KETONES,URINE 3+ (NEGATIVE); LEUKOCYTE ESTERASE ,URINE NEGATIVE (NEGATIVE); NITRITE,URINE NEGATIVE (NEGATIVE); PH,URINE 5.5 (5-9); PROTEIN,URINE NEGATIVE (NEGATIVE)
[2022-11-08 07:13] LABS: CHLORIDE 101 MMOL/L (98-107); POTASSIUM 4.3 MMOL/L (3.6-5.0); SODIUM 140 MMOL/L (135-145)
[2022-11-08 07:14] LABS: ALBUMIN 5.2 GM/DL (3.2-4.5)
[2022-11-08 07:15] LABS: CALCIUM 9.2 MG/DL (8.5-10.1)
[2022-11-08 07:16] LABS: GLUCOSE 74 MG/DL (70-105); TOTAL PROTEIN 7.9 GM/DL (6.4-8.2)
[2022-11-08 07:17] LABS: AMPHETAMINE SCREEN, URINE NEGATIVE (NEGATIVE); BARBITURATE SCREEN URINE NEGATIVE (NEGATIVE); BENZODIAZEPINES SCREEN URINE NEGATIVE (NEGATIVE); CANNABINOID SCREEN, URINE POSITIVE (NEGATIVE); CARBON DIOXIDE 12 MMOL/L (21-32); COCAINE SCREEN URINE NEGATIVE (NEGATIVE); METHADONE STAT NEGATIVE (NEGATIVE); OPIATE SCREEN URINE NEGATIVE (NEGATIVE); OXYCODONE STAT NEGATIVE (NEGATIVE); PROPOXYPHENE STAT NEGATIVE (NEGATIVE); TRICYCLIC ANTIDEPRESSANTS SCRE NEGATIVE (NEGATIVE)
[2022-11-08 07:18] LABS: BILIRUBIN,TOTAL 0.5 MG/DL (0.1-1.0)
[2022-11-08 07:20] LABS: ALKALINE PHOSPHATASE 82 U/L (40-136); CREATININE SERUM 0.89 MG/DL (0.60-1.30); GFR ESTIMATED 115
[2022-11-08 07:21] LABS: BUN/CREATININE RATIO 18
[2022-11-08 07:22] LABS: SALICYLATE < 5.0 MG/DL (5.0-20.0)
[2022-11-08 07:23] LABS: ALANINE AMINOTRANSFERASE 39 U/L (0-55)
[2022-11-08 07:27] LABS: ACETAMINOPHEN < 10 UG/ML (10-30)
[2022-11-08] MEDS ORDERED: ONDANSETRON 4 MG/5 ML ORAL SOLN (ZOFRAN) 5 ML PO ONE (07:30)
[2022-11-08] MEDS ORDERED: hydrOXYzine (VISTARIL/ATARAX) 25 MG capsule/tablet PO ONE (11:30)
[2022-11-08] MEDS ORDERED: ONDANSETRON 4 MG (ZOFRAN) ORAL DISSOLVE TAB PO STA (14:07)
[2022-11-08 17:14] VITALS: BP 139/89
== END 2022-11-08 17:14 | disposition home or self-care (01) ==
LOC: ER 06:17
DX: F32.A Depression, unspecified (principal); Z20.822 Contact with and (suspected) exposure to COVID-19; Z28.310 Unvaccinated for COVID-19
CPT/HCPCS: 80053; 80306; 81000; 85025; 87636; 93005; 99284; G0480 ×3; 36415; 80320; 80329

== ENCOUNTER 2022-11-13 21:45 | Emergency (ER) | payer SELFPAY ==
--- NOTE | 2022-11-13 21:57 | ED Psychosocial ---
General Chief Complaint: Substance Abuse Stated Complaint: ETOH History of Present Illness Date Seen by Provider: Nov 13, 2022 Time Seen by Provider: 21:50 Initial Comments 32 year old male brought by EMS for depression and acute alcohol intoxication. Patient reports drinking 5th of vodka. He has appt with [facility] Nov 24. He is not taking any medications. Denies suicidal thoughts. Was last seen here on 11/08 for depression. Has been to [facility] several times. Timing/Duration: this afternoon Severity: mild (MANSOOR VALVERDE) Allergies and Home Medications Allergies Coded Allergies: No Known Drug Allergies (Unverified , 09/11/21) Patient Home Medication List Home Medication List Reviewed: Yes (MANSOOR VALVERDE) Amoxicillin (Amoxicillin) 500 Mg Capsule, 500 MG PO TID Prescribed by: PERLA SEPULVEDA on 09/11/212034 Lorazepam (Ativan) 0.5 Mg Tablet, 1-2 TAB PO Q4H PRN for ANXIETY Prescribed by: DEVEN SMYTH on 04/28/22 153 Mirtazapine (Mirtazapine) 15 Mg Tablet, 15 MG PO HS Prescribed by: DEVEN SMYTH on 04/28/22 1529 Review of Systems Constitutional: no symptoms reported Psychiatric/Neurological: See HPI, Other (acute alcohol intoxication) (MANSOOR VALVERDE) All Other Systems Reviewed Negative Unless Noted: Yes (MANSOOR VALVERDE) Past Igdywmh-Plyubr-Gmoamy Hx Immunizations Up To Date First/Initial COVID19 Vaccinat: NA Second COVID19 Vaccination Elliot: NA Third COVID19 Vaccination Date: [place] J&J APPROX 1 YEAR AGO (MANSOOR VALVERDE) Past Medical History Surgery/Hospitalization HX: ANXIETY, DEPRESSION, HTN Surgeries: No Respiratory: No Cardiac: No Neurological: No Psychosocial: Yes Anxiety, Depression (MANSOOR VALVERDE) Family Medical History Reviewed and Corrections made (MANSOOR VALVERDE) No Pertinent Family Hx (MANSOOR VALVERDE) Physical Exam Vital Signs - First Documented 11/13/22 21:50 Temp 35.9 Pulse 84 Resp 16 B/P (MAP) 127/80 (96) (YASMANY DAVID MD) Capillary Refill : (MANSOOR VALVERDE) Height, Weight, BMI Height: '" Weight: lbs. oz. kg; 20.00 BMI Method: General Appearance: WD/WN, no apparent distress HEENT: PERRL/EOMI, normal ENT inspection Neck: non-tender, full range of motion, supple, normal inspection Respiratory: chest non-tender, lungs clear, normal breath sounds Cardiovascular: normal peripheral pulses, regular rate, rhythm Gastrointestinal: normal bowel sounds, non tender, soft Extremities: normal range of motion, non-tender, normal inspection, normal capillary refill Neurologic/Psychiatric: no motor/sensory deficits, alert, normal mood/affect, oriented x 3 Appearance/Memory: appropriate appearance, appropriate insight, neat Behavior/Eye Contact: cooperative, good eye contact, normal speech Thoughts/Hallucinations: normal thought pattern, no apparent hallucination Skin: normal color, warm/dry (MANSOOR VALVERDE) Progress/Results/Core Measures Results/Orders Lab Results Laboratory Tests Test 11/13/22 21:58 11/13/22 21:59 11/13/22 23:25 Range/Units White Blood Count 9.7 4.3-11.0 10^3/uL Red Blood Count 4.84 4.30-5.52 10^6/uL Hemoglobin 15.2 13.3-17.7 g/dL Hematocrit 44 40-54 % Mean Corpuscular Volume 90 80-99 fL Mean Corpuscular Hemoglobin 31 25-34 pg Mean Corpuscular Hemoglobin Concent 35 32-36 g/dL Red Cell Distribution Width 14.2 10.0-14.5 % Platelet Count 222 130-400 10^3/uL Mean Platelet Volume 9.2 9.0-12.2 fL Immature Granulocyte % (Auto) 0 % Neutrophils (%) (Auto) 74 42-75 % Lymphocytes (%) (Auto) 22 12-44 % Monocytes (%) (Auto) 4 0-12 % Eosinophils (%) (Auto) 0 0-10 % Basophils (%) (Auto) 1 0-10 % Neutrophils # (Auto) 7.1 1.8-7.8 10^3/uL Lymphocytes # (Auto) 2.1 1.0-4.0 10^3/uL Monocytes # (Auto) 0.4 0.0-1.0 10^3/uL Eosinophils # (Auto) 0.0 0.0-0.3 10^3/uL Basophils # (Auto) 0.1 0.0-0.1 10^3/uL Immature Granulocyte # (Auto) 0.0 0.0-0.1 10^3/uL Sodium Level 143 135-145 MMOL/L Potassium Level 3.5 L 3.6-5.0 MMOL/L Chloride Level 103 98-107 MMOL/L Carbon Dioxide Level 17 L 21-32 MMOL/L Anion Gap 23 H 5-14 MMOL/L Blood Urea Nitrogen 13 7-18 MG/DL Creatinine 0.79 0.60-1.30 MG/DL Estimat Glomerular Filtration Rate 120 BUN/Creatinine Ratio 16 Glucose Level 69 L 70-105 MG/DL Calcium Level 8.4 L 8.5-10.1 MG/DL Corrected Calcium 8.5-10.1 MG/DL Total Bilirubin 0.6 0.1-1.0 MG/DL Aspartate Amino Transf (AST/SGOT) 107 H 5-34 U/L Alanine Aminotransferase (ALT/SGPT) 64 H 0-55 U/L Alkaline Phosphatase 79 40-136 U/L Total Protein 7.1 6.4-8.2 GM/DL Albumin 4.7 H 3.2-4.5 GM/DL Serum Alcohol 361 *H 325 *H <10 MG/DL Urine Color YELLOW Urine Clarity CLEAR Urine pH 5.5 5-9 Urine Specific Bowler >=1.030 1.016-1.022 Urine Protein NEGATIVE NEGATIVE Urine Glucose (UA) NEGATIVE NEGATIVE Urine Ketones 2+ H NEGATIVE Urine Nitrite NEGATIVE NEGATIVE Urine Bilirubin NEGATIVE NEGATIVE Urine Urobilinogen 0.2 < = 1.0 MG/DL Urine Leukocyte Esterase NEGATIVE NEGATIVE Urine RBC (Auto) TRACE-I H NEGATIVE Urine RBC NONE /HPF Urine WBC 0-2 /HPF Urine Squamous Epithelial Cells 0-2 /HPF Urine Renal Epithelial Cells NONE /HPF Urine Crystals NONE /LPF Urine Bacteria NEGATIVE /HPF Urine Casts NONE /LPF Urine Mucus NEGATIVE /LPF Urine Culture Indicated NO Urine Opiates Screen NEGATIVE NEGATIVE Urine Oxycodone Screen NEGATIVE NEGATIVE Urine Methadone Screen NEGATIVE NEGATIVE Urine Propoxyphene Screen NEGATIVE NEGATIVE Urine Barbiturates Screen NEGATIVE NEGATIVE Ur Tricyclic Antidepressants Screen NEGATIVE NEGATIVE Urine Phencyclidine Screen NEGATIVE NEGATIVE Urine Amphetamines Screen NEGATIVE NEGATIVE Urine Methamphetamines Screen NEGATIVE NEGATIVE Urine Benzodiazepines Screen NEGATIVE NEGATIVE Urine Cocaine Screen NEGATIVE NEGATIVE Urine Cannabinoids Screen POSITIVE H NEGATIVE (YASMANY DAVID MD) My Orders Orders - YASMANY DAVID MD Accucheck Stat ONCE (11/14/22 00:51) (YASMANY DAVID MD) Medications Given in ED Current Medications Medications Dose Ordered Sig/Omi Route Start Time Stop Time Status Last Admin Dose Admin Dextrose/Sodium Chloride 1,000 ml @ 0 mls/hr ONCE ONCE IV 11/13/22 23:00 11/13/22 23:01 DC 11/13/22 23:09 0 MLS/HR Ondansetron HCl 4 mg ONCE ONCE IVP 11/13/22 22:15 11/13/22 22:16 DC 11/13/22 22:13 4 MG (YASMANY DAVID MD) Vital Signs/I&O 11/13/22 21:50 Temp 35.9 Pulse 84 Resp 16 B/P (MAP) 127/80 (96) (YASMANY DAVID MD) Progress Progress Note : Time: 21:50 Progress Note patient assessed, will give IV fluids, check labs and monitor. 2230 patient reports improved nausea, taking water and crackers. ETOH 361. NS first liter infused, will give D5 1/2 NS and monitor. 2250 patient complains of nausea, will give Phenergan 25 mg IV. Plan to recheck ETOH level at 2330. Continues to deny suicidal or homicidal thoughts. (MANSOOR VALVERDE) Progress Note : Time: 01:07 Progress Note Patient care assumed at shift change from the nurse practitioner. Patient has been hydrated. Basic laboratory studies obtained and reviewed. No concerning findings. He is feeling much much better currently. Clinically sober. His blood sugar is 212. His vital signs are stable. He is able to maintain logical conversation. He has a goal for sobriety, and appointment with [facility] on November 24. He intends on keeping that appointment. He has good social support with his roommate and his roommates . He has a good steady job with a supportive boss. He maintains he has no suicidal thoughts or "bad thoughts" or homicidal thoughts. He is eager to get restarted on his antidepressant medication. No other complaints or concerns at this time. Patient is stable for discharge. (YASMANY DAVID MD) Transfer of Care Time: 23:00 Care transferred to: Dr. David. (MANSOOR VALVERDE) Departure Impression Primary Impression: Depression Qualified Codes: F33.1 - Major depressive disorder, recurrent, moderate Additional Impression: Acute alcoholic intoxication Qualified Codes: F10.920 - Alcohol use, unspecified with intoxication, uncomplicated Disposition: 01 HOME, SELF-CARE Condition: Improved Departure-Patient Inst. Decision time for Depature: 23:00 (MANSOOR VALVERDE) Referrals: [facility],LOCAL PHYSICIAN (PCP) Primary Care Physician Patient Instructions: ALCOHOL AND SUBSTANCE ABUSE, Alcohol Use Disorder (DC), Depression, Adult (DC) Add. Discharge Instructions: See [facility] Mental Health or [facility] Mental Health. Consider ATC in [place] for alcohol cessation, contact 8am to 5pm Mon-Fri Decrease or stop drinking Alcohol. Call 276-SAVE if feeling depressed or any thoughts to harm yourself or others. Increase water intake, 16 oz every 2 hours while awake. Use Zofran every 6-8 hours for nausea or vomiting. Return to Emergency Dept for new/urgent healthcare needs. [facility] [address] [place] [address] [facility] [phone] [place] [address] Get Immediate Help [email or web address] or Call [phone]) MANSOOR VALVERDE Nov 13, 2022 21:57 YASMANY DAVID MD Nov 14, 2022 01:09
[2022-11-13] MEDS ORDERED: NS IV 1000 ML 1,000 ML IV SCH ×2 (22:00→22:45)
[2022-11-13] MEDS ORDERED: ONDANSETRON 4 MG (ZOFRAN) ORAL DISSOLVE TAB SL STA (22:02)
[2022-11-13 22:05] LABS: BASOPHILS # (AUTO) 0.1 10^3/uL (0.0-0.1); BASOPHILS % (AUTO) 1 % (0-10); EOSINOPHILS % (AUTO) 0 % (0-10); HEMATOCRIT 44 % (40-54); HEMOGLOBIN 15.2 g/dL (13.3-17.7); LYMPHOCYTES # (AUTO) 2.1 10^3/uL (1.0-4.0); LYMPHOCYTES % (AUTO) 22 % (12-44); MEAN CORPUSCULAR HEMOGLOBIN 31 pg (25-34); MEAN CORPUSCULAR HGB CONC 35 g/dL (32-36); MEAN CORPUSCULAR VOLUME 90 fL (80-99); MEAN PLATELET VOLUME 9.2 fL (9.0-12.2); MONOCYTES # (AUTO) 0.4 10^3/uL (0.0-1.0); MONOCYTES % (AUTO) 4 % (0-12); NEUTROPHILS # (AUTO) 7.1 10^3/uL (1.8-7.8); NEUTROPHILS % (AUTO) 74 % (42-75); PLATELET COUNT 222 10^3/uL (130-400); WHITE BLOOD COUNT 9.7 10^3/uL (4.3-11.0)
[2022-11-13 22:07] LABS: BILIRUBIN,URINE NEGATIVE (NEGATIVE); CLARITY,URINE CLEAR; COLOR,URINE YELLOW; GLUCOSE, URINE (UA) NEGATIVE (NEGATIVE); KETONES,URINE 2+ (NEGATIVE); LEUKOCYTE ESTERASE ,URINE NEGATIVE (NEGATIVE); NITRITE,URINE NEGATIVE (NEGATIVE); PH,URINE 5.5 (5-9); PROTEIN,URINE NEGATIVE (NEGATIVE)
[2022-11-13 22:13] LABS: BACTERIA,URINE NEGATIVE /HPF; SQUAMOUS EPITHELIAL CELL,UR 0-2 /HPF; WBC,URINE 0-2 /HPF
[2022-11-13] MEDS ORDERED: ONDANSETRON 4 MG/2 ML (SDV) Z0FRAN IVP ONE (22:15)
[2022-11-13 22:17] LABS: AMPHETAMINE SCREEN, URINE NEGATIVE (NEGATIVE); BARBITURATE SCREEN URINE NEGATIVE (NEGATIVE); BENZODIAZEPINES SCREEN URINE NEGATIVE (NEGATIVE); CANNABINOID SCREEN, URINE POSITIVE (NEGATIVE); COCAINE SCREEN URINE NEGATIVE (NEGATIVE); METHADONE STAT NEGATIVE (NEGATIVE); OPIATE SCREEN URINE NEGATIVE (NEGATIVE); OXYCODONE STAT NEGATIVE (NEGATIVE); PROPOXYPHENE STAT NEGATIVE (NEGATIVE); TRICYCLIC ANTIDEPRESSANTS SCRE NEGATIVE (NEGATIVE)
[2022-11-13 22:19] LABS: ALBUMIN 4.7 GM/DL (3.2-4.5); CHLORIDE 103 MMOL/L (98-107); POTASSIUM 3.5 MMOL/L (3.6-5.0); SODIUM 143 MMOL/L (135-145)
[2022-11-13 22:20] LABS: CALCIUM 8.4 MG/DL (8.5-10.1)
[2022-11-13 22:21] LABS: GLUCOSE 69 MG/DL (70-105)
[2022-11-13 22:22] LABS: CARBON DIOXIDE 17 MMOL/L (21-32); TOTAL PROTEIN 7.1 GM/DL (6.4-8.2)
[2022-11-13 22:23] LABS: BILIRUBIN,TOTAL 0.6 MG/DL (0.1-1.0)
[2022-11-13 22:25] LABS: ALKALINE PHOSPHATASE 79 U/L (40-136); CREATININE SERUM 0.79 MG/DL (0.60-1.30); GFR ESTIMATED 120
[2022-11-13 22:26] LABS: BUN/CREATININE RATIO 16
[2022-11-13 22:28] LABS: ALANINE AMINOTRANSFERASE 64 U/L (0-55)
[2022-11-13] MEDS ORDERED: PROMETHAZINE INJ 25 MG/ML (PHENERGAN) AMP IVP STA (22:48)
[2022-11-13] MEDS ORDERED: D5 1/2 NS 1000 ML IV SOLUTION 1,000 ML IV ONE (23:00)
[2022-11-13] MEDS ORDERED: RX-ONDANSETRON 4 MG ODT (ZOFRAN) PPK #4 PO STA (23:02)
[2022-11-14] MEDS ORDERED: RX-ONDANSETRON 4 MG ODT (ZOFRAN) PPK #4 ONE (01:21)
[2022-11-14 01:28] VITALS: BP 124/85
== END 2022-11-14 01:25 | disposition home or self-care (01) ==
LOC: EDUNIT# 21:45 → ER 21:47
DX: F32.A Depression, unspecified (principal); F10.129 Alcohol abuse with intoxication, unspecified; Y90.8 Blood alcohol level of 240 mg/100 ml or more
CPT/HCPCS: 80053; 80306; 81000; 85025; 96361; 96374; 96375; 99283; G0480; 36415; 80320

== ENCOUNTER 2023-02-09 02:31 | Inpatient (IN) | payer SELFPAY ==
[~2023-02-09] VITALS: Ht 188 cm; Wt 72.0 kg
[2023-02-09] MEDS ORDERED: PANTOPRAZOLE 40 MG (PROTONIX) VIAL IV ONE (02:45)
[2023-02-09] MEDS ORDERED: LACTATED RINGERS 1,000 ML IV ONE ×3 (02:45→03:45)
[2023-02-09] MEDS ORDERED: METOCLOPRAMIDE INJ 10 MG/2 ML (REGLAN) ONE (02:46)
[2023-02-09 03:00] LABS: BASOPHILS # (AUTO) 0.1 10^3/uL (0.0-0.1); BASOPHILS % (AUTO) 0 % (0-10); HEMOGLOBIN 16.9 g/dL (13.3-17.7); MEAN CORPUSCULAR VOLUME 95 fL (80-99)
[2023-02-09] MEDS ORDERED: METOCLOPRAMIDE INJ 10 MG/2 ML (REGLAN) IVP ONE ×2 (03:00→04:00)
[2023-02-09 03:01] LABS: EOSINOPHILS # (AUTO) 14.2 10^3/uL (0.0-0.3); EOSINOPHILS % (AUTO) 51 % (0-10); HEMATOCRIT 50 % (40-54); LYMPHOCYTES # (AUTO) 0.9 10^3/uL (1.0-4.0); LYMPHOCYTES % (AUTO) 3 % (12-44); MEAN CORPUSCULAR HEMOGLOBIN 32 pg (25-34); MEAN CORPUSCULAR HGB CONC 34 g/dL (32-36); MEAN PLATELET VOLUME 9.8 fL (9.0-12.2); MONOCYTES # (AUTO) 2.6 10^3/uL (0.0-1.0); MONOCYTES % (AUTO) 9 % (0-12); NEUTROPHILS # (AUTO) 9.9 10^3/uL (1.8-7.8); NEUTROPHILS % (AUTO) 36 % (42-75); PLATELET COUNT 282 10^3/uL (130-400); WHITE BLOOD COUNT 27.7 10^3/uL (4.3-11.0)
[2023-02-09 03:06] LABS: ALBUMIN 5.2 GM/DL (3.2-4.5)
[2023-02-09 03:07] LABS: CHLORIDE 97 MMOL/L (98-107); POTASSIUM 4.5 MMOL/L (3.6-5.0); SODIUM 142 MMOL/L (135-145)
[2023-02-09 03:08] LABS: AMYLASE 64 U/L (25-125)
[2023-02-09 03:09] LABS: GLUCOSE 125 MG/DL (70-105); TOTAL PROTEIN 8.5 GM/DL (6.4-8.2)
[2023-02-09 03:11] LABS: BILIRUBIN,TOTAL 0.8 MG/DL (0.1-1.0)
[2023-02-09 03:12] LABS: ALKALINE PHOSPHATASE 93 U/L (40-136)
[2023-02-09 03:13] LABS: CREATININE SERUM 1.28 MG/DL (0.60-1.30); GFR ESTIMATED 75
[2023-02-09 03:14] LABS: BUN/CREATININE RATIO 12
[2023-02-09 03:15] LABS: MAGNESIUM 1.8 MG/DL (1.6-2.4)
[2023-02-09 03:16] LABS: ALANINE AMINOTRANSFERASE 48 U/L (0-55)
[2023-02-09 03:17] LABS: CARBON DIOXIDE 5 MMOL/L (21-32); LIPASE 19 U/L (8-78)
[2023-02-09 03:25] LABS: BILIRUBIN,URINE NEGATIVE (NEGATIVE); CLARITY,URINE CLEAR; COLOR,URINE YELLOW; GLUCOSE, URINE (UA) NEGATIVE (NEGATIVE); KETONES,URINE 3+ (NEGATIVE); LEUKOCYTE ESTERASE ,URINE NEGATIVE (NEGATIVE); NITRITE,URINE NEGATIVE (NEGATIVE); PROTEIN,URINE TRACE (NEGATIVE)
[2023-02-09 03:33] LABS: EOSINOPHILS % (MANUAL) 1 %; LYMPHOCYTES % (MANUAL) 2 %; MONOCYTES % (MANUAL) 6 %; NEUTROPHILS % (MANUAL) 91 %; STOMATOCYTES SLIGHT; TOXIC GRANULATION/VACUOLAZATIO 2+
[2023-02-09 03:38] LABS: AMPHETAMINE SCREEN, URINE NEGATIVE (NEGATIVE); BACTERIA,URINE NEGATIVE /HPF; BARBITURATE SCREEN URINE NEGATIVE (NEGATIVE); BENZODIAZEPINES SCREEN URINE NEGATIVE (NEGATIVE); CANNABINOID SCREEN, URINE POSITIVE (NEGATIVE); COCAINE SCREEN URINE NEGATIVE (NEGATIVE); HYALINE CASTS, URINE 0-2 /LPF; METHADONE STAT NEGATIVE (NEGATIVE); OPIATE SCREEN URINE NEGATIVE (NEGATIVE); OXYCODONE STAT NEGATIVE (NEGATIVE); PROPOXYPHENE STAT NEGATIVE (NEGATIVE); TRICYCLIC ANTIDEPRESSANTS SCRE NEGATIVE (NEGATIVE)
[2023-02-09] MEDS ORDERED: CEFEPIME INJECTION 1,000 MG in NS (IVPB) 50 ML IV ONE (03:45)
[2023-02-09] MEDS ORDERED: ONDANSETRON 4 MG/2 ML (SDV) Z0FRAN IVP ONE (04:00)
[2023-02-09] MEDS ORDERED: CATHETER FLUSH 10 ML SYR IV PRN (04:15)
[2023-02-09] MEDS ORDERED: NS 100 ML (IVPB) BAG IV ONE (04:15)
[2023-02-09] MEDS ORDERED: IOHEXOL 350 MG/ML 100 ML (OMNIPAQUE 350) VIAL IV ONE (04:15)
--- NOTE | 2023-02-09 04:33 | ED GI ---
General Chief Complaint: Abdominal/GI Problems Stated Complaint: VOMITING Nursing Triage Note: BROUGHT IN BY [facility] C/O N/V, DECREASED PO INTAKE SINCE 02/07/23. DENIES OTHER SX. GLUCOSE 121, 4MG SOFRAN GIVEN BY EMS Source of Information: Patient History of Present Illness Date Seen by Provider: Feb 09, 2023 Time Seen by Provider: 02:40 Initial Comments PT ARRIVES VIA EMS FROM HOME PT STATES HE IS AN ALCOHOLIC AND DRANK TOO MUCH PT STATES HE NORMALLY DRINKS 1/2 TO 1 PINT OF VODKA A DAY. ON WEDNESDAY NIGHT, HE DRANK 1 1/2 PINTS OF VODKA. SINCE Wednesday HE HAS HAD NAUSEA AND VOMITED TOO MANY TIMES TO COUNT--"EVERY 15-30 MINUTES" HAD HAS DIFFUSE ABDOMINAL PAIN--STATES IT FEELS LIKE SORE MUSCLES LAST BM WAS WEDNESDAY NIGHT LAST VOID WAS JUST PRIOR TO ARRIVAL. HE HAS BEEN HAVING CHILLS AND SWEATS, BUT DOES NOT KNOW IF HE HAS HAD FEVER OR NOT. HE STATES THIS HAS HAPPENED MULTIPLE TIMES HE STATES IF HE GOES TOO LONG WITHOUT ALCOHOL, HE GETS THE SHAKES AND STARTS SWEATING AND GETS ANXIOUS. HE DENIES ANY HISTORY OF SEIZURES. HE DENIES ANY PRIOR ABDOMINAL SURGERIES STATES HE DOES NOT TAKE ANY MEDICATIONS--HE IS SUPPOSED TO BE ON MEDICATION FOR DEPRESSION, BUT HAS NOT TAKEN ANY MEDICATIONS FOR AT LEAST A MONTH--STATES HE CAN'T AFFORD IT. HE DENIES ANY OTHER MEDICAL PROBLEMS PT SMOKES 1 PPD, DRINKS DAILY, THC USE DAILY. EMS GAVE ZOFRAN 4 MG PRIOR TO ARRIVAL PCP: NONE--STATES HE GOES TO ER FOR ALL MEDICAL CARE M[facility]ALTH: [facility] Allergies and Home Medications Allergies Coded Allergies: No Known Drug Allergies (Unverified , 09/11/21) Patient Home Medication List Home Medication List Reviewed: Yes Discontinued Medications Amoxicillin (Amoxicillin) 500 Mg Capsule, 500 MG PO TID Discontinued Reason: No Longer Taking Prescribed by: PERLA SEPULVEDA on 09/11/212034 Last Action: Discontinued Lorazepam (Ativan) 0.5 Mg Tablet, 1-2 TAB PO Q4H PRN for ANXIETY Discontinued Reason: No Longer Taking Prescribed by: DEVEN SMYTH on 04/28/22 1530 Last Action: Discontinued Mirtazapine (Mirtazapine) 15 Mg Tablet, 15 MG PO HS Discontinued Reason: No Longer Taking Prescribed by: DEVEN SMYTH on 04/28/22 1529 Last Action: Discontinued Review of Systems Review of Systems Constitutional: chills, malaise, weakness EENTM: No Symptoms Reported Respiratory: No Symptoms Reported Cardiovascular: No Symptoms Reported Gastrointestinal: See HPI, Abdominal Pain, Nausea, Poor Fluid Intake, Vomiting Genitourinary: No Symptoms Reported Musculoskeletal: no symptoms reported Skin: no symptoms reported Psychiatric/Neurological: No Symptoms Reported Endocrine: No Symptoms Reported Hematologic/Lymphatic: No Symptoms Reported Past [id number] Hx Patient Social History Tobacco Use?: Yes Tobacco type used: Cigarettes Smoking Status: Current Everyday Smoker Substance use?: Yes Substance type: Marijuana Substance frequency: Daily Alcohol Use?: Yes Alcohol type: Hard Liquor Alcohol Frequency: Daily Pt feels they are or have been: No Immunizations Up To Date First/Initial COVID19 Vaccinat: X1 Second COVID19 Vaccination Elliot: NA Third COVID19 Vaccination Date: [facility] J[facility]J APPROX 1 YEAR AGO COVID19 Vaccine [employer] Adviser: J&J Past Medical History Surgery/Hospitalization HX: ANXIETY, DEPRESSION, HTN, ETOH ABUSE Surgeries: No Respiratory: No Cardiac: No Neurological: No Genitourinary: No Gastrointestinal: No Musculoskeletal: No Endocrine: No HEENT: No Cancer: No Psychosocial: Yes (ALCOHOLISM; SUICIDAL IDEATION WITH INTOXICATION) Anxiety, Depression Integumentary: No Blood Disorders: No Family Medical History No Pertinent Family Hx Physical Exam Vital Signs Vital Signs - First Documented 02/09/23 02:33 Temp 36.8 Pulse 137 Resp 20 B/P (MAP) 151/108 (122) Pulse Ox 97 O2 Delivery Room Air Capillary Refill : Less Than 3 Seconds Height/Weight/BMI Height: '" Weight: lbs. oz. kg; 20.00 BMI Method: General Appearance: other (PT IS HYPERVENTILATING, RETCHING FORCEFULLY, WITH SMALL AMOUNT OF CLEAR EMESIS. ) HEENT: PERRL/EOMI Neck: normal inspection Respiratory: normal breath sounds, no respiratory distress, no accessory muscle use Cardiovascular: no edema, no JVD, no murmur, tachycardia (120'S) Gastrointestinal: soft, abnormal bowel sounds (DECREASED), tenderness (MILD DIFFUSE TENDERNESS) Extremities: normal inspection, normal capillary refill Back: no CVA tenderness Neurologic/Psychiatric: no motor/sensory deficits, alert, oriented x 3 Skin: cool, damp, pallor Focused Exam Sepsis Stage: Sepsis Possible Source: Unknown Lactate Level 02/09/23 03:55: Lactic Acid Level 7.10*H Time of Focused Exam: 05:00 Respiratory: Normal Breath Sounds, No Accessory Muscle Use, No Respiratory Distress Cardiovascular: Tachycardia Capillary Refill: Less Than 3 Seconds Lactic Acid Level Laboratory Tests Test 02/09/23 03:55 Lactic Acid Level 7.10 MMOL/L (0.50-2.00) *H Within 3hrs of presentation: Admin fluids, Admin ABX, Blood cultures prior to ABX's, Focus exam, Lactate level Progress/Results/Core Measures Results/Orders Lab Results Laboratory Tests Test 02/09/23 02:47 02/09/23 03:10 02/09/23 03:55 Range/Units White Blood Count 27.7 H 4.3-11.0 10^3/uL Red Blood Count 5.28 4.30-5.52 10^6/uL Hemoglobin 16.9 13.3-17.7 g/dL Hematocrit 50 40-54 % Mean Corpuscular Volume 95 80-99 fL Mean Corpuscular Hemoglobin 32 25-34 pg Mean Corpuscular Hemoglobin Concent 34 32-36 g/dL Red Cell Distribution Width 12.4 10.0-14.5 % Platelet Count 282 130-400 10^3/uL Mean Platelet Volume 9.8 9.0-12.2 fL Immature Granulocyte % (Auto) 0 % Neutrophils (%) (Auto) 36 L 42-75 % Lymphocytes (%) (Auto) 3 L 12-44 % Monocytes (%) (Auto) 9 0-12 % Eosinophils (%) (Auto) 51 H 0-10 % Basophils (%) (Auto) 0 0-10 % Neutrophils # (Auto) 9.9 H 1.8-7.8 10^3/uL Lymphocytes # (Auto) 0.9 L 1.0-4.0 10^3/uL Monocytes # (Auto) 2.6 H 0.0-1.0 10^3/uL Eosinophils # (Auto) 14.2 H 0.0-0.3 10^3/uL Basophils # (Auto) 0.1 0.0-0.1 10^3/uL Immature Granulocyte # (Auto) 0.1 0.0-0.1 10^3/uL Neutrophils % (Manual) 91 % Lymphocytes % (Manual) 2 % Monocytes % (Manual) 6 % Eosinophils % (Manual) 1 % Toxic Granulation 2+ Stomatocytes SLIGHT Sodium Level 142 135-145 MMOL/L Potassium Level 4.5 3.6-5.0 MMOL/L Chloride Level 97 L 98-107 MMOL/L Carbon Dioxide Level 5 *L 21-32 MMOL/L Anion Gap 40 H 5-14 MMOL/L Blood Urea Nitrogen 15 7-18 MG/DL Creatinine 1.28 0.60-1.30 MG/DL Estimat Glomerular Filtration Rate 75 BUN/Creatinine Ratio 12 Glucose Level 125 H 70-105 MG/DL Calcium Level 9.0 8.5-10.1 MG/DL Corrected Calcium 8.5-10.1 MG/DL Magnesium Level 1.8 1.6-2.4 MG/DL Total Bilirubin 0.8 0.1-1.0 MG/DL Aspartate Amino Transf (AST/SGOT) 87 H 5-34 U/L Alanine Aminotransferase (ALT/SGPT) 48 0-55 U/L Alkaline Phosphatase 93 40-136 U/L Total Protein 8.5 H 6.4-8.2 GM/DL Albumin 5.2 H 3.2-4.5 GM/DL Amylase Level 64 25-125 U/L Lipase 19 8-78 U/L Serum Alcohol 44 H <10 MG/DL Urine Color YELLOW Urine Clarity CLEAR Urine pH 6.0 5-9 Urine Specific [place] >=1.030 1.016-1.022 Urine Protein TRACE H NEGATIVE Urine Glucose (UA) NEGATIVE NEGATIVE Urine Ketones 3+ H NEGATIVE Urine Nitrite NEGATIVE NEGATIVE Urine Bilirubin NEGATIVE NEGATIVE Urine Urobilinogen 0.2 < = 1.0 MG/DL Urine Leukocyte Esterase NEGATIVE NEGATIVE Urine RBC (Auto) NEGATIVE NEGATIVE Urine RBC NONE /HPF Urine WBC NONE /HPF Urine Crystals NONE /LPF Urine Bacteria NEGATIVE /HPF Urine Casts PRESENT /LPF Urine Hyaline Casts 0-2 H /LPF Urine Mucus NEGATIVE /LPF Urine Culture Indicated NO Urine Opiates Screen NEGATIVE NEGATIVE Urine Oxycodone Screen NEGATIVE NEGATIVE Urine Methadone Screen NEGATIVE NEGATIVE Urine Propoxyphene Screen NEGATIVE NEGATIVE Urine Barbiturates Screen NEGATIVE NEGATIVE Ur Tricyclic Antidepressants Screen NEGATIVE NEGATIVE Urine Phencyclidine Screen NEGATIVE NEGATIVE Urine Amphetamines Screen NEGATIVE NEGATIVE Urine Methamphetamines Screen NEGATIVE NEGATIVE Urine Benzodiazepines Screen NEGATIVE NEGATIVE Urine Cocaine Screen NEGATIVE NEGATIVE Urine Cannabinoids Screen POSITIVE H NEGATIVE Lactic Acid Level 7.10 *H 0.50-2.00 MMOL/L My Orders Orders - RONNIE TREJO DO Ed Iv/Invasive Line Start (02/09/23 02:39) Monitor-Rhythm Ecg Trace Only (02/09/23 02:39) Alcohol (02/09/23 02:39) Amylase (02/09/23 02:39) Cbc With Automated Diff (02/09/23 02:39) Comprehensive Metabolic Panel (02/09/23 02:39) Drug Screen Stat (Urine) (02/09/23 02:39) Lipase (02/09/23 02:39) Magnesium (02/09/23 02:39) Ua Culture If Indicated (02/09/23 02:39) Ed Iv/Invasive Line Start (02/09/23 02:39) Lactated Ringers (Lr 1000 Ml Iv Solution (02/09/23 02:45) Pantoprazole Injection (Protonix Injecti (02/09/23 02:45) Metoclopramide Injection (Reglan Injecti (02/09/23 03:00) Metoclopramide Injection (Reglan Injecti (02/09/23 02:46) Manual Differential (02/09/23 02:47) Lactic Acid Analyzer (02/09/23 03:41) Blood Culture (02/09/23 03:41) Ct Abd/Pelv W (Appendicitis) (02/09/23 03:41) Vital Signs Adult Sepsis Patie Q15M (02/09/23 03:41) Remove Rings In Anticipation O (02/09/23 03:41) Lactated Ringers (Lr 1000 Ml Iv Solution (02/09/23 03:45) Cefepime Injection (Maxipime Injection) (02/09/23 03:45) Ed Iv/Invasive Line Start (02/09/23 03:42) Lactated Ringers (Lr 1000 Ml Iv Solution (02/09/23 03:45) Metoclopramide Injection (Reglan Injecti (02/09/23 04:00) Ondansetron Injection (Zofran Injectio (02/09/23 04:00) Iohexol Injection (Omnipaque 350 Mg/Ml 1 (02/09/23 04:15) Sodium Chloride Flush (Catheter Flush Sy (02/09/23 04:15) Ns (Ivpb) (Sodium Chloride 0.9% Ivpb Bag (02/09/23 04:15) Ed Admission (Communication) (02/09/23 04:54) Medications Given in ED Current Medications Medications Dose Ordered Sig/Moi Route Start Time Stop Time Status Last Admin Dose Admin Cefepime HCl 1000 mg/Sodium Chloride 50 ml @ 100 mls/hr ONCE ONCE IV 02/09/23 03:45 02/09/23 04:14 DC 02/09/23 04:22 100 MLS/HR Iohexol 100 ml ONCE ONCE IV 02/09/23 04:15 02/09/23 04:16 DC 02/09/23 04:10 80 ML Lactated Ringer's 1,000 ml @ 0 mls/hr Q0M ONCE IV 02/09/23 02:45 02/09/23 02:46 DC 02/09/23 02:49 0 MLS/HR Lactated Ringer's 1,000 ml @ 0 mls/hr Q0M ONCE IV 02/09/23 03:45 02/09/23 03:46 DC 02/09/23 04:21 0 MLS/HR Lactated Ringer's 1,000 ml @ 0 mls/hr Q0M ONCE IV 02/09/23 03:45 02/09/23 03:46 DC 02/09/23 04:22 0 MLS/HR Metoclopramide HCl 10 mg ONCE ONCE IVP 02/09/23 03:00 02/09/23 03:01 DC 02/09/23 02:49 10 MG Metoclopramide HCl 10 mg ONCE ONCE IVP 02/09/23 04:00 02/09/23 04:01 DC 02/09/23 04:22 10 MG Ondansetron HCl 4 mg ONCE ONCE IVP 02/09/23 04:00 02/09/23 04:01 DC 02/09/23 04:22 4 MG Pantoprazole 40 mg ONCE ONCE IV 02/09/23 02:45 02/09/23 02:46 DC 02/09/23 02:49 40 MG Sodium Chloride 10 ml NEEDED PRN IV 02/09/23 04:15 02/09/23 04:10 10 ML Sodium Chloride 100 ml ONCE ONCE IV 02/09/23 04:15 02/09/23 04:16 DC 02/09/23 04:10 80 ML Vital Signs/I&O 02/09/23 02/09/23 02:33 05:38 Temp 36.8 36.5 Pulse 137 98 Resp 20 16 B/P (MAP) 151/108 (122) 144/84 Pulse Ox 97 98 O2 Delivery Room Air Room Air Blood Pressure Mean: 122 Progress Progress Note : Progress Note GIVEN: -IV FLUIDS -ZOFRAN -REGLAN -ANTIBIOTICS NAUSEA IS IMPROVED, BUT NOT GONE, STATES HE IS STILL VOMITING A LITTLE. ON RECEIVING LAB RESULTS, WITH ELEVATED WBC, ADDITIONAL SEPTIC LABS AND PROTOCOL INITIATED DIFFERENTIAL DX INCLUDES; DEHYDRATION; PANCREATITIS; GASTRITIS/ULCER/ESOPHAGITIS; ALCOHOL WITHDRAWL; CHOLECYSTITIS; HEPATITIS; ANXIETY WITH HYPERVENTILATION; VIRAL OR BACTERIAL GASTROENTERITIS PT REMAINS TACHYCARDIC WITH RATE IN 120'S AFTER 2 LITERS OF FLUIDS, BUT BP IS STABLE IN THE 130'S-140'S/70'S-80'S NO DETERIORATION IN PT'S CONDITION DURING ER STAY. REVIEWED PRIOR RECORDS--ALL ER VISITS, SINCE HIS FIRST VISIT HERE 09/11/[address] ABDOMEN/PELVIS--PER [facility] VIA FAX AT [phone] -DIFFUSE SUBMUCOSAL FATTY INFILTRATION OF LARGE BOWEL, SPARING THE SIGMOID COLON. MAY BE AN INCIDENTAL FINDING OR ASSOCIATED WITH INFLAMMATORY BOWEL DISEASE -NO BOWEL OBSTRUCTION OR INFLAMMATION -NO ACUTE FINDINGS. Reviewed: Reviewed by Ar Departure Communication (Admissions) 0130--SPOKE WITH DR. TUCKER, HOSPITALIST, ACCEPTS PT FOR ADMIT. SHE WILL DO ADMIT ORDERS. Impression Primary Impression: Intractable nausea and vomiting Additional Impressions: Alcoholism Lactic acidosis Leukocytosis Anxiety Disposition: ADMITTED INPATIENT Condition: Stable Admissions Decision to Admit Reason: Admit from ER (General) Decision to Admit/Date: Feb 09, 2023 Time/Decision to Admit Time: 04:50 Departure-Patient Inst. Referrals: NO,LOCAL PHYSICIAN (PCP/Family) Primary Care Physician RONNIE TREJO DO Feb 09, 2023 04:33
[2023-02-09] MEDS ORDERED: LACTULOSE SYRUP 10GM/15ML (ENULOSE) 30ML UDC PO PRN (05:45)
[2023-02-09] MEDS ORDERED: BISACODYL 10 MG SUPP (DULCOLAX) PR PRN (05:45)
[2023-02-09] MEDS ORDERED: ONDANSETRON 4 MG (ZOFRAN) ORAL DISSOLVE TAB PO PRN (05:45)
[2023-02-09] MEDS ORDERED: MELATONIN 3 MG TABLET PO PRN (05:45)
[2023-02-09] MEDS ORDERED: NS IV 500 ML 500 ML IV PRN (05:45)
[2023-02-09] MEDS ORDERED: ACETAMINOPHEN 325 MG TABLET PO PRN (05:45)
[2023-02-09] MEDS ORDERED: diphenhydrAMINE 50 MG/ML INJ (BENADRYL) IVP PRN (05:45)
[2023-02-09] MEDS ORDERED: HYDROmorphone 2 MG/ML VIAL (DILAUDID) IV PRN (05:45)
[2023-02-09] MEDS ORDERED: MILK OF MAGNESIA 400 MG/5 ML 30 ML UDC PO PRN (05:45)
[2023-02-09] MEDS ORDERED: ANTACID SUSP 30 ML UDC (MYLANTA) PO PRN ×2 (05:45→06:45)
[2023-02-09] MEDS ORDERED: ONDANSETRON 4 MG/2 ML (SDV) Z0FRAN IV PRN ×2 (05:45→06:45)
[2023-02-09] MEDS ORDERED: polyethylene glycoL POWDER 17 GM (MIRALAX) PACK PO PRN (05:45)
[2023-02-09] MEDS ORDERED: CALCIUM CARBONATE 500 MG (TUMS) TAB.CHEW PO PRN (05:45)
[2023-02-09] MEDS ORDERED: diphenhydrAMINE 25 MG TAB (BENADRYL) PO PRN (05:45)
[2023-02-09] MEDS ORDERED: THIAMINE 100 MG/ML 2 ML (VITAMIN B-1) VIAL IV ONE (06:00)
--- NOTE | 2023-02-09 06:08 | Tele-ICU Consult ---
History of Present Illness History of Present Illness Date Seen by Provider: Feb 09, 2023 Time Seen by Provider: 06:25 Date of Admission 02/09/23 History of Present Illness (Tele-ICU Physician , Progress Note ) Service provided via interactive audio and video telecommunications [facility]ARE sy stem to a patient admitted to ICU bed in [facility]. Patient is seen today due to persistent need of ICU care Available chart/ vitals / labs / Images reviewed Video assessment done using teleICU camera, rest of exam as per RN He is a 32-year-old male with history of chronic alcohol abuse and apparently drank vodka 1-2 pints 2 days ago and started having soreness in the abdomen and a recurrent vomitings. A 15 to 30 minutes several times a day and he came to the emergency room and found to have a severe metabolic acidosis with a normal glucose associated with low bicarbonate and a urine analysis suggestive of 3+ ketones. All these features suggestive of alcoholic ketoacidosis currently he is a risk for alcohol withdrawal syndrome hence he is admitted to the intensive care unit for aggressive hydration and monitoring for any withdrawal symptoms. CT of the abdomen and pelvis done which is not read yet by the radiologist but evaluation by me grossly looks unremarkable without any acute changes. He is also started on IV antibiotics in case any sepsis is going on. Impression 1. Severe nausea and vomiting associated with metabolic acidosis and acute anemia suggestive of alcoholic, starvation ketoacidosis. 2. Acute kidney injury 3. Needs to rule out any sepsis. 4. High risk for alcohol withdrawal syndrome. Recommendations 1. We will hydrate with a D5 LR. 2. We will give 1 ampoule of sodium bicarbonate IV 3. Will give IV Protonix 4. We will give thiamine and folic acid IV 5. IV antibiotics per primary care physician. 6. Monitor his electrolytes, magnesium and phosphate closely. 7. Start on a CIWA protocol. 8. Sepsis work-up being done. 9. DVT prophylaxis and ulcer prophylaxis. Coordination of care with primary care physician and bedside consultants. I am remotely monitoring this patient from Tele icu station in [place]. I am u nable to do the bedside exam, and history/physical and pertinent information is taken from other notes in the computer and bedside staff. Certain portions of this document may have been dictated utilizing voice recognition technology such as [employer]. Inherent to this technology, typographical and grammatical errors may exist. As much as I am diligent to identify and correct to these mistakes, some errors may remain in the document. Critical care time due to gated to this patient today is- approximately 35 minutes Allergies and Home Medications Allergies Coded Allergies: No Known Drug Allergies (Unverified , 09/11/21) Past Medical/Social/Family Hx Patient Social History Tobacco Use?: Yes Tobacco type used: Cigarettes Smoking Status: Current Everyday Smoker Substance use?: Yes Substance type: Marijuana Substance frequency: Daily Alcohol Use?: Yes Alcohol type: Hard Liquor Alcohol Frequency: Daily Pt stated abuse/neglect: No Immunizations Up To Date Influenza Vaccine Up-to-Date: No; Not Current First/Initial COVID19 Vaccinat: X1 Second COVID19 Vaccination Elliot: NA Tetanus Booster (TDap): Unknown Current Status Advance Directives: No Communicates: Verbally Primary Language: Kittitian Preferred Spoken Language: Kittitian Is interpretation needed?: No Implanted or Applied Medical D: None Review of Systems Constitutional: weakness (MODERATE DISTRESS) Focused Exam Lactate Level 02/09/23 03:55: Lactic Acid Level 7.10*H Height, Weight, BMI Height: '" Weight: lbs. oz. kg; 20.00 BMI Method: Time of Focused Exam: 05:00 Lactic Acid Level Laboratory Tests Test 02/09/23 03:55 Lactic Acid Level 7.10 MMOL/L (0.50-2.00) *H Exam Exam Patient acknowledged, consented, and participated in this virtual visit which was conducted using real time audio/video Vital Signs Date Time Temp Pulse Resp B/P (MAP) Pulse Ox O2 Delivery O2 Flow Rate FiO2 02/09/23 05:51 37.1 112 18 159/97 (117) 99 Room Air 02/09/23 05:51 37.1 112 02/09/23 05:38 36.5 98 16 144/84 98 Room Air 02/09/23 02:33 36.8 137 20 151/108 (122) 97 Room Air I & O 02/09/23 07:00 Intake Total 3050 ml Output Total 1000 ml Balance 2050 ml Height & Weight Height: '" Weight: lbs. oz. kg; 20.00 BMI Method: General Appearance: Chronically ill Respiratory: Normal Breath Sounds, No Accessory Muscle Use, No Respiratory Distress Cardiovascular: Tachycardia Capillary Refill: Less Than 3 Seconds Gastrointestinal: soft, abnormal bowel sounds (DECREASED), tenderness (MILD DIFFUSE TENDERNESS) Other comments PE PER RN Results Lab Laboratory Tests 02/09/23 02:47 Assessment/Plan Assessment/Plan ABOVE Critical Care: Critically Ill Patient Time spent with patient (mins): 35 ELISSA CHARLTON MD Feb 09, 2023 06:08
--- NOTE | 2023-02-09 06:11 | Diagnostic Imaging Report ---
EXAMINATION: CT abdomen and pelvis with intravenous contrast. TECHNIQUE: Multiple contiguous axial images were obtained through the abdomen and pelvis after the uneventful administration of intravenous contrast. All CT scans use one or more of the following dose optimizing techniques: automated exposure control, MA and/or KvP adjustment based on patient size and exam type or iterative reconstruction. HISTORY: Abdominal pain. Nausea and vomiting. COMPARISON: None available. FINDINGS: The heart is unremarkable. The included lung bases are clear. The liver, spleen, pancreas, adrenal glands, and kidneys have a normal appearance. The gallbladder is unremarkable. There is no pathologically enlarged mesenteric or retroperitoneal adenopathy. The bowel loops are nondilated. The appendix is visualized in the right lower quadrant and has a normal appearance. The colon is decompressed. There is no free fluid or free air. No acute osseous abnormalities. Ureters and bladder are grossly normal. There is no free air, loculated collection, or adenopathy in the pelvis. IMPRESSION: 1. No acute abnormalities in the abdomen and pelvis. No bowel obstruction, free fluid, or free air. Normal appendix. 2. Decompressed colon which limits evaluation. Agree with overnight report. Dictated by: Dictated on workstation # [id number]
[2023-02-09] MEDS ORDERED: SODIUM BICARB 8.4% 50 MEQ/50 ML (ABBOTT) SYR IV ONE (06:15)
[2023-02-09] MEDS: NS IV 1000 ML 1,000 ML IV SCH ×3 (06:22→21:46)
[2023-02-09] MEDS: ENOXAPARIN 40 MG/0.4 ML (LOVENOX) SYR SC SCH (06:23)
[2023-02-09] MEDS: D5 LR IV SOLUTION 1,000 ML IV SCH ×4 (06:23→22:59)
[2023-02-09] MEDS: MAGNESIUM 1 GM/100 ML IVPB 100 ML IV SCH ×3 (06:23→07:29)
[2023-02-09] MEDS: KCL 20 MEQ TAB (K-DUR) PO SCH (06:23)
[2023-02-09] MEDS: POTASSIUM CL 10MEQ/50ML IVPB 50 ML IV SCH (06:23)
[2023-02-09 06:39] LABS: PHOSPHORUS 6.7 MG/DL (2.3-4.7)
[2023-02-09 06:41] LABS: MAGNESIUM 1.7 MG/DL (1.6-2.4)
[2023-02-09] MEDS ORDERED: LORazepam 1 MG (ATIVAN) TAB PO PRN (06:45)
[2023-02-09] MEDS ORDERED: LORazepam INJ 2 MG/ML (ATIVAN) VIAL IV PRN (06:45)
[2023-02-09] MEDS ORDERED: ONDANSETRON 4 MG (ZOFRAN) ORAL DISSOLVE TAB SL PRN (06:45)
[2023-02-09] MEDS ORDERED: LORazepam INJ 2 MG/ML (ATIVAN) VIAL IM/IV PRN (06:45)
[2023-02-09] MEDS ORDERED: SENNA W/DOCUSATE (SENOKOT S) TABLET PO PRN (06:45)
[2023-02-09] MEDS ORDERED: 1/2 NS IV SOLUTION 1,000 ML IV PRN (06:45)
[2023-02-09] MEDS ORDERED: D5 1/2 NS 1000 ML IV SOLUTION 1,000 ML IV PRN (06:45)
[2023-02-09 07:45] LABS: ABG BASE EXCESS -13.1 MMOL/L (-2.5-2.5); ABG OXYGEN SATURATION 99 % (94-100); ABG PCO2 23 MMHG (35-45); ABG PO2 132 MMHG (79-93); ABG TCO2 12.5 MMOL/L (21.0-31.0)
[2023-02-09 07:51] LABS: ABG PH 7.33 (7.37-7.43)
[2023-02-09 07:52] LABS: ALLENS TEST YES-POS; PATIENT TEMP 37.1; VENTILATOR NO
[2023-02-09] MEDS: THIAMINE INJECTION 100 MG, FOLIC ACID INJECTION 1 MG, MAGNESIUM SULFATE 2 GM, VITAMIN M... IV SCH ×5 (08:41)
[2023-02-09] MEDS: PANTOPRAZOLE 40 MG (PROTONIX) VIAL IV SCH (08:41)
[2023-02-09] MEDS ORDERED: FOLIC ACID 5MG/ML 10 ML IV SCH (09:00)
[2023-02-09] MEDS: SENNOSIDES 8.6 MG (SENOKOT) TAB PO SCH ×2 (09:41→21:21)
[2023-02-09] MEDS: DOCUSATE SODIUM 100 MG (COLACE) CAP PO SCH ×2 (09:41→21:21)
[2023-02-09] MEDS ORDERED: CHLORASEPTIC SPRAY 177 ML LIQUID MC PRN (10:00)
[2023-02-09] MEDS ORDERED: DexMEDEtomidine 250 ML DRIP 250 ML IV SCH (10:15)
--- NOTE | 2023-02-09 10:28 | Diagnostic Imaging Report ---
INDICATION: Aspiration COMPARISON: None available. TECHNIQUE: Single radiograph chest dated 02/09/2023. FINDINGS: The cardiac silhouette is within normal limits in size. No significant pulmonary vascular congestion. The lungs are clear. No pleural effusion. No pneumothorax. No acute osseous abnormality. IMPRESSION: Unremarkable examination without acute cardiopulmonary abnormality. Dictated by: Dictated on workstation # [id number]
[2023-02-09 10:38] LABS: POTASSIUM 4.7 MMOL/L (3.6-5.0)
[2023-02-09 10:40] LABS: CALCIUM 7.9 MG/DL (8.5-10.1)
[2023-02-09 10:44] LABS: CREATININE SERUM 1.19 MG/DL (0.60-1.30); PHOSPHORUS 1.6 MG/DL (2.3-4.7)
[2023-02-09 10:46] LABS: MAGNESIUM 2.4 MG/DL (1.6-2.4)
[2023-02-09] MEDS ORDERED: MIRT-69 PO (11:05)
[2023-02-09] MEDS ORDERED: GABA300C PO (11:05)
--- NOTE | 2023-02-09 11:07 | History & Physical ---
ROSA JOSEPH [birth year]: History of Present Illness History of Present Illness Reason for visit/HPI 32 year old male with history of alcoholism, HTN, anxiety, and Depression with intermittent SI presented to the ED02/09 am via EMS for intractable nausea, vomiting, and abd pain. He reports drinking 0.5 - 1.0 pints of vodka daily, but drank 1.5 pints Wednesday night and developed the intractable vomiting Wednesday morning upon waking. He reports his last BM was Wednesday night. He reports questionable brown hematemesis a couple of the times he threw up. Upon arrival to the ED he was afebrile, tachycardic in the 130's, hypertensive, and tolerating RA. His labs were significant for leukocytosis (27.7), LA 7.10, AG 40, glucose 125. Urinalysis revealed ketones present and toxicology was positive for alcohol and cannabinoids. Pt was admitted to the ICU for metabolic acidosis w/ alcoholic ketoacidosis for medical care. When seen this morning, patient reports vomiting has resolved, he has intermittent nausea, and a sore throat. This morning janis denies CP, palpitations, SOB, cough, abd pain, hamturia, melena, agitation, or tremors. Date of Admission Feb 09, 2023 at 05:40 Date Seen by a Provider: Feb 09, 2023 Time Seen by a Provider: 08:10 I consulted on this patient on 02/09/23 11:01 Attending Physician Taya,[facility] Physician Admitting Physician Admitting Physician: Jennifer Tucker DO Attending Physician: Jennifer Tucker DO Consult Allergies and Home Medications Allergies Coded Allergies: No Known Drug Allergies (Unverified , 09/11/21) Patient Home Medication List Gabapentin (Neurontin) 300 Mg Capsule, 300 MG PO BID, (Reported) Entered as Reported by: SIRISHA FENTON on 02/09/231104 Last Action: Reviewed Mirtazapine (Mirtazapine) 30 Mg Tablet, 15 MG PO HS, (Reported) Entered as Reported by: SIRISHA FENTON on 02/09/231104 Last Action: Reviewed Discontinued Medications Amoxicillin (Amoxicillin) 500 Mg Capsule, 500 MG PO TID Discontinued Reason: No Longer Taking Prescribed by: PERLA SEPULVEDA on 09/11/212034 Last Action: Discontinued Lorazepam (Ativan) 0.5 Mg Tablet, 1-2 TAB PO Q4H PRN for ANXIETY Discontinued Reason: No Longer Taking Prescribed by: DEVEN SMYTH on 04/28/22 1530 Last Action: Discontinued Mirtazapine (Mirtazapine) 15 Mg Tablet, 15 MG PO HS Discontinued Reason: No Longer Taking Prescribed by: DEVEN SMYTH on 04/28/22 1529 Last Action: Discontinued Past Kwyxkkj-Qxrqct-Jjhsut Hx Patient Social History Tobacco Use?: No Tobacco type used: Cigarettes Smoking Status: Current Everyday Smoker Use of E-Cig and/or Vaping dev: Yes E-Cig or Vaping type used: Nicotine Use of E-Cig and/or Vaping Jose: Current Everyday User Substance use?: Yes Substance type: Marijuana Substance frequency: Couple times a week Alcohol Use?: Yes Alcohol type: Hard Liquor Additional alcohol type: VODKA Alcohol Frequency: Daily Pt feels they are or have been: No Immunizations Up To Date First/Initial COVID19 Vaccinat: X1 Second COVID19 Vaccination Elliot: NA Tetanus Booster (TDap): Unknown Hepatitis A: No Current Status Advance Directives: No Communicates: Verbally Primary Language: Yakut Preferred Spoken Language: Yakut Is interpretation needed?: No Implanted or Applied Medical D: None Past Medical History Loss of Vision: Denies Hearing Impairment: Denies Anxiety, Depression Blood Disorders: No Family Medical History Diabetes ((father)) Review of Systems Constitutional: No chills; weakness (generalized) EENTM: No hearing loss, No vision loss Respiratory: No cough, No dyspnea on exertion, No hemoptysis, No short of breath Cardiovascular: No chest pain, No palpitations Gastrointestinal: abdominal pain (generalized abd pain at home has resolved with resolvement of vomiting), hematemesis (brown in color), nausea (improving), vomiting (resolved) Genitourinary: No discharge, No dysuria, No hematuria Skin: no symptoms reported Psychiatric/Neurological: No Symptoms Reported Physical Exam Vital Signs Vital Signs - First Documented 02/09/23 02:33 Temp 36.8 Pulse 137 Resp 20 B/P (MAP) 151/108 (122) Pulse Ox 97 O2 Delivery Room Air Capillary Refill : Less Than 3 Seconds Height, Weight, BMI Height: '" Weight: lbs. oz. kg; 20.31 BMI Method: General Appearance: No Apparent Distress, WD/WN Eyes: Bilateral Eye PERRL, Bilateral Eye EOMI HEENT: PERRL/EOMI, Pharynx Normal, Moist Mucous Membranes Neck: Non Tender, Supple Respiratory: Chest Non Tender, Lungs Clear, Normal Breath Sounds, No Accessory Muscle Use, No Respiratory Distress Cardiovascular: No Murmur, Normal Peripheral Pulses, Tachycardia (sinus) Gastrointestinal: Normal Bowel Sounds, No Organomegaly, Non Tender, Soft Extremity: Normal Capillary Refill, Non Tender, No Calf Tenderness Neurologic/Psychiatric: Alert, Oriented x3, No Motor/Sensory Deficits, Normal Mood/Affect Skin: Normal Color, Warm/Dry Lymphatic: No Adenopathy Assessment/Plan Assessment and Plan Metabolic acidosis w/ alcoholic ketoacidosis -Initial LA 7.10, Glucose 125, AG 40. ABG 7.33|23|132|12. -D5 LR and manage N/V. Will encourage food as tolerated. 1 unit Bicarb given this morning. Severe Sepsis of unclear etiology -Tachycardia, laukocytosis, and Lactic acidosis upon arrival. CT abd/pelvis showed no acute abnormalities. Will order CXR to rule out possible aspiration pneumonia although suspicion is low based on physical exam. -vital/lab abnormalities possibly secondary to acute phase reaction from alcoholic ketoacidosis but will further rule out other etiologies given marked WBC elevation. Alcohol abuse disorder -CIWA protocol and monitor DEB -Cr 1.28 which us up from 0.79 on 11/13/22. IVF and monitor Depression/anxiety -Pt. has not been taking home medications for past month due to cost. Reports taking mirtazipine at night. Will hold for now and have SW work with patient on access upon discharge. DVT Proph: lovenox Diet: as tolerated PPI proph: PPI JENNIFER TUCKER DO 02/10/23 0513: Allergies and Home Medications Allergies Coded Allergies: No Known Drug Allergies (Unverified , 09/11/21) Patient Home Medication List Home Medication List Reviewed: Yes Gabapentin (Neurontin) 300 Mg Capsule, 300 MG PO BID, (Reported) Entered as Reported by: SIRISHA FENTON on 02/09/23 110 Last Action: Reviewed Mirtazapine (Mirtazapine) 30 Mg Tablet, 15 MG PO HS, (Reported) Entered as Reported by: SIRISHA FENTON on 3/28/23 1105 Last Action: Reviewed Discontinued Medications Amoxicillin (Amoxicillin) 500 Mg Capsule, 500 MG PO TID Discontinued Reason: No Longer Taking Prescribed by: PERLA SEPULVEDA on 09/11/212034 Last Action: Discontinued Lorazepam (Ativan) 0.5 Mg Tablet, 1-2 TAB PO Q4H PRN for ANXIETY Discontinued Reason: No Longer Taking Prescribed by: DEVEN SMYTH on 04/28/22 1530 Last Action: Discontinued Mirtazapine (Mirtazapine) 15 Mg Tablet, 15 MG PO HS Discontinued Reason: No Longer Taking Prescribed by: DEVEN SMYTH on 04/28/22 1529 Last Action: Discontinued Past Dcxnecm-Jwitdt-Nptoty Hx Patient Social History Marrital Status: single Employed/Student: unemployed Review of Systems Constitutional: see HPI Physical Exam General Appearance: No Apparent Distress, WD/WN, Chronically ill Assessment/Plan Assessment and Plan Problems: (1) Intractable nausea and vomiting Status: Acute (2) Leukocytosis Status: Acute (3) Anxiety Status: Acute (4) Alcoholism Status: Acute (5) Lactic acidosis Status: Acute (6) Acute alcoholic intoxication Status: Acute Admission Diagnosis Admission Status: Inpatient Order (span 2 midnights) Reason for Inpatient Admission: etoh ketoacidosis Supervisory-Addendum Brief Verification & Attestation Participated in pt care: history, MDM, physical Personally performed: exam, history, MDM, supervision of care Care discussed with: Medical Student Procedures: n/a Results interpretation: Verified all documentation Verification and Attestation of Medical Student E/M Service A medical student performed and documented this service in my presence. I reviewed and verified all information documented by the medical student and made modifications to such information, when appropriate. I personally performed the physical exam and medical decision making. Jennifer Tucker Feb 10, 2023,05:13 ROSA JOSEPH Feb 09, 2023 11:07 JENNIFER TUCKER DO Feb 10, 2023 05:13
[2023-02-09 14:27] LABS: POTASSIUM 3.9 MMOL/L (3.6-5.0)
[2023-02-09 14:28] LABS: CALCIUM 7.9 MG/DL (8.5-10.1)
[2023-02-09 14:32] LABS: CREATININE SERUM 1.13 MG/DL (0.60-1.30); PHOSPHORUS 1.4 MG/DL (2.3-4.7)
[2023-02-09 14:35] LABS: MAGNESIUM 2.6 MG/DL (1.6-2.4)
[2023-02-09 18:46] LABS: POTASSIUM 3.7 MMOL/L (3.6-5.0)
[2023-02-09 18:52] LABS: CREATININE SERUM 0.96 MG/DL (0.60-1.30); PHOSPHORUS 1.4 MG/DL (2.3-4.7)
[2023-02-09 18:54] LABS: MAGNESIUM 2.4 MG/DL (1.6-2.4)
[2023-02-09 22:21] LABS: POTASSIUM 3.7 MMOL/L (3.6-5.0)
[2023-02-09 22:22] LABS: CALCIUM 8.1 MG/DL (8.5-10.1)
[2023-02-09 22:27] LABS: CREATININE SERUM 0.88 MG/DL (0.60-1.30); PHOSPHORUS 1.1 MG/DL (2.3-4.7)
[2023-02-09 22:29] LABS: MAGNESIUM 2.2 MG/DL (1.6-2.4)
[2023-02-10 05:04] LABS: EOSINOPHILS % (AUTO) 0 % (0-10); HEMOGLOBIN 13.4 g/dL (13.3-17.7); MEAN PLATELET VOLUME 10.3 fL (9.0-12.2)
[2023-02-10 05:06] LABS: BASOPHILS % (AUTO) 0 % (0-10); HEMATOCRIT 38 % (40-54); LYMPHOCYTES # (AUTO) 1.2 10^3/uL (1.0-4.0); LYMPHOCYTES % (AUTO) 12 % (12-44); MEAN CORPUSCULAR HEMOGLOBIN 32 pg (25-34); MEAN CORPUSCULAR HGB CONC 35 g/dL (32-36); MEAN CORPUSCULAR VOLUME 92 fL (80-99); MONOCYTES % (AUTO) 9 % (0-12); NEUTROPHILS # (AUTO) 8.3 10^3/uL (1.8-7.8); NEUTROPHILS % (AUTO) 78 % (42-75); PLATELET COUNT 136 10^3/uL (130-400); WHITE BLOOD COUNT 10.5 10^3/uL (4.3-11.0)
[2023-02-10 05:15] LABS: ALBUMIN 3.7 GM/DL (3.2-4.5); POTASSIUM 3.8 MMOL/L (3.6-5.0)
[2023-02-10 05:17] LABS: CALCIUM 8.3 MG/DL (8.5-10.1)
[2023-02-10 05:18] LABS: TOTAL PROTEIN 5.7 GM/DL (6.4-8.2)
[2023-02-10 05:22] LABS: CREATININE SERUM 0.81 MG/DL (0.60-1.30)
[2023-02-10 05:25] LABS: MAGNESIUM 2.1 MG/DL (1.6-2.4)
[2023-02-10 05:27] LABS: PHOSPHORUS 0.9 MG/DL (2.3-4.7)
[2023-02-10] MEDS: NS IV 1000 ML 1,000 ML IV SCH (06:01)
[2023-02-10] MEDS: KCL 20 MEQ TAB (K-DUR) PO SCH (06:02)
[2023-02-10] MEDS: POTASSIUM CL 10MEQ/50ML IVPB 50 ML IV SCH (06:02)
[2023-02-10] MEDS: MAGNESIUM 1 GM/100 ML IVPB 100 ML IV SCH (06:02)
[2023-02-10] MEDS: ENOXAPARIN 40 MG/0.4 ML (LOVENOX) SYR SC SCH (06:02)
[2023-02-10] MEDS ORDERED: POTASSIUM PHOSPHATE INJ 30 MM in NS (IVPB) 250 ML IV ONE (06:30)
[2023-02-10] MEDS: D5 LR IV SOLUTION 1,000 ML IV SCH (07:06)
--- NOTE | 2023-02-10 07:26 | Tele-ICU Progress Note ---
Subjective Date Seen by a Provider: Feb 10, 2023 Subjective/Events-last exam (Tele-ICU Physician , Progress Note ) Service provided via interactive audio and video telecommunications E-CARE system to a patient admitted to ICU bed in [facility]. Patient is seen today due to persistent need of ICU care Available chart/ vitals / labs / Images reviewed Video assessment done using teleICU camera, rest of exam as per RN He is a 32-year-old male with history of chronic alcohol abuse and apparently drank vodka 1-/2 pints 2 days ago and started having soreness in the abdomen and a recurrent vomitings. A 15 to 30 minutes several times a day and he came to the emergency room and found to have a severe metabolic acidosis with a normal glucose associated with low bicarbonate and a urine analysis suggestive of 3+ ketones. All these features suggestive of alcoholic ketoacidosis currently he is a risk for alcohol withdrawal syndrome hence he is admitted to the intensive care unit for aggressive hydration and monitoring for any withdrawal symptoms. CT of the abdomen and pelvis done which is not read yet by the radiologist but evaluation by me grossly looks unremarkable without any acute changes. He is also started on IV antibiotics in case any sepsis is going on. 02/10/23 today he is ffeling much better, no nausea or vomiting. AG closed. phosphorus is low and being replaced. Hemodynamically stable Impression 1. Severe nausea and vomiting associated with metabolic acidosis and acute anemia suggestive of alcoholic, starvation ketoacidosis. now resolved 2. Acute kidney injury improved 3. Needs to rule out any sepsis. so far negative 4. High risk for alcohol withdrawal syndrome. no signs of withdrawal so far. Recommendations 1. Advance diet as tolerate. 2. change protonix to po 3. Continue CIWA protocol. 4. from critical care point of view he may be transferred to med/surg floor or discharged if ok with primary Coordination of care with primary care physician and bedside consultants. I am remotely monitoring this patient from Tele icu station in [place]. I am unable to do the bedside exam, and history/physical and pertinent information is taken from other notes in the computer and bedside staff. Certain portions of this document may have been dictated utilizing voice recognition technology such as [employer]. Inherent to this technology, typographical and grammatical errors may exist. As much as I am diligent to identify and correct to these mistakes, some errors may remain in the document. Critical care time due to gated to this patient today is- approximately 23 minutes Sepsis Event Evaluation Height, Weight, BMI Height: '" Weight: lbs. oz. kg; 20.31 BMI Method: Focused Exam Lactate Level 02/09/23 03:55: Lactic Acid Level 7.10*H 02/09/23 06:11: Lactic Acid Level 2.81*H 02/09/23 10:14: Lactic Acid Level 1.30 Time of Focused Exam: 05:00 Exam Exam Patient acknowledged, consented, and participated in this virtual visit which was conducted using real time audio/video Vital Signs Date Time Temp Pulse Resp B/P (MAP) Pulse Ox O2 Delivery O2 Flow Rate FiO2 02/10/23 06:00 66 118/83 (95) 97 Room Air 02/10/23 05:00 79 131/88 (103) 99 Room Air 02/10/23 04:00 67 126/76 (82) 98 Room Air 02/10/23 04:00 98 Room Air 02/10/23 03:00 98 145/93 (112) 99 Room Air 02/10/23 02:00 73 147/92 (110) 98 Room Air 02/10/23 01:00 75 131/88 (102) 99 Room Air 02/10/23 01:00 75 02/10/23 00:00 78 133/92 (110) 99 Room Air 02/09/23 23:59 98 Room Air 02/09/23 23:00 96 133/95 (108) 100 Room Air 02/09/23 22:00 78 134/89 (104) 100 Room Air 02/09/23 21:00 86 143/88 (104) 99 Room Air 02/09/23 20:00 86 142/88 (104) 98 Room Air 02/09/23 20:00 36.0 02/09/23 20:00 98 Room Air 02/09/23 19:00 86 144/92 (108) 100 Room Air 02/09/23 19:00 86 02/09/23 18:00 84 139/89 (106) 99 Room Air 02/09/23 17:00 82 136/89 (105) 99 Room Air 02/09/23 16:40 37.6 02/09/23 16:25 98 Room Air 02/09/23 16:00 81 137/87 (104) 100 Room Air 02/09/23 15:00 90 140/87 (104) 100 Room Air 02/09/23 14:00 87 140/97 (111) 100 Room Air 02/09/23 13:00 97 141/83 (102) 99 Room Air 02/09/23 12:31 91 02/09/23 12:10 100 Room Air 02/09/23 12:05 37.6 02/09/23 12:00 94 141/77 (98) 100 Room Air 02/09/23 11:00 85 134/82 (99) 98 Room Air 02/09/23 10:00 90 128/70 (89) 99 Room Air 02/09/23 09:00 103 140/79 (99) 99 Room Air 02/09/23 08:00 101 130/84 (99) 99 Room Air 02/09/23 07:48 99 Room Air 02/09/23 07:37 37.1 I & O 02/10/23 07:00 Intake Total 650 ml Balance 650 ml Height & Weight Height: '" Weight: lbs. oz. kg; 20.31 BMI Method: General Appearance: No Apparent Distress, WD/WN, Chronically ill HEENT: PERRL/EOMI, Pharynx Normal, Moist Mucous Membranes Neck: Non Tender, Supple Respiratory: Chest Non Tender, Lungs Clear, Normal Breath Sounds, No Accessory Muscle Use, No Respiratory Distress Cardiovascular: No Murmur, Normal Peripheral Pulses, Tachycardia (sinus) Capillary Refill: Less Than 3 Seconds Gastrointestinal: soft, abnormal bowel sounds (DECREASED), tenderness (MILD DIFFUSE TENDERNESS) Extremity: Normal Capillary Refill, Non Tender, No Calf Tenderness Neurologic/Psychiatric: Alert, Oriented x3, No Motor/Sensory Deficits, Normal Mood/Affect Skin: Normal Color, Warm/Dry Lymphatic: No Adenopathy Results Lab Laboratory Tests 02/09/23 02:47 02/09/23 10:14 02/09/23 13:59 02/09/23 18:27 02/09/23 21:45 02/10/23 04:50 Assessment/Plan Assessment/Plan as above Critical Care: Critically Ill Patient Time spent with patient (mins): ELISSA CHARLTON MD Feb 10, 2023 07:26
[2023-02-10] MEDS: THIAMINE INJECTION 100 MG, FOLIC ACID INJECTION 1 MG, MAGNESIUM SULFATE 2 GM, VITAMIN M... IV SCH ×5 (08:03)
[2023-02-10] MEDS: PANTOPRAZOLE 40 MG (PROTONIX) VIAL IV SCH (08:03)
[2023-02-10] MEDS: DOCUSATE SODIUM 100 MG (COLACE) CAP PO SCH (08:04)
[2023-02-10] MEDS: SENNOSIDES 8.6 MG (SENOKOT) TAB PO SCH (08:04)
[2023-02-10] MEDS ORDERED: FAMO-119 PO (09:17)
[2023-02-10] MEDS ORDERED: MIRT-69 PO (09:17)
[2023-02-10] MEDS ORDERED: MULT-1136 PO (09:17)
[2023-02-10] MEDS ORDERED: GABA300C PO (09:17)
--- NOTE | 2023-02-10 09:18 | Discharge Summary ---
"Diagnosis/Chief Complaint Date of Admission Feb 09, 2023 at 05:40 Date of Discharge Discharge Date: Feb 10, 2023 Discharge Diagnosis Metabolic acidosis w/ alcoholic ketoacidosis -Initial LA 7.10, Glucose 125, AG 40. ABG 7.33|23|132|12. -D5 LR and manage N/V. Will encourage food as tolerated. 1 unit Bicarb given this morning. Severe Sepsis of unclear etiology -Tachycardia, laukocytosis, and Lactic acidosis upon arrival. CT abd/pelvis showed no acute abnormalities. Will order CXR to rule out possible aspiration pneumonia although suspicion is low based on physical exam. -vital/lab abnormalities possibly secondary to acute phase reaction from alcoholic ketoacidosis but will further rule out other etiologies given marked WBC elevation. Alcohol abuse disorder -CIWA protocol and monitor DEB -Cr 1.28 which us up from 0.79 on 11/13/22. IVF and monitor Depression/anxiety -Pt. has not been taking home medications for past month due to cost. Reports taking mirtazipine at night. Will hold for now and have SW work with patient on MH access upon discharge. DVT Proph: lovenox Diet: as tolerated PPI proph: PPI Discharge Summary Discharge Physical Examination Allergies: Coded Allergies: No Known Drug Allergies (Unverified , 09/11/21) Vitals & I&Os Vital Signs Date Time Temp Pulse Resp B/P (MAP) Pulse Ox O2 Delivery O2 Flow Rate FiO2 02/10/23 10:00 87 143/95 (111) 99 Room Air 02/10/23 09:19 37.0 21 02/09/23 05:51 18 General Appearance: Alert, Oriented X3, Cooperative Respiratory: Clear to Auscultation Cardiovascular: Regular Rate Psych/Mental Status: Mental Status NL Hospital Course Was the Problem List Reviewed?: Yes Hospital Course 32 year old male with history of alcoholism, HTN, anxiety, and Depression with intermittent SI Who was admitted to [facility] [place] Int[facility] Unit from 02/09- 02/10 for alcoholic ketoacidosis. When seen initially e reports drinking 0.5 - 1.0 pints of vodka daily, but drank 1.5 pints Wednesday night (02/07) and developed the intractable vomiting the next morning upon waking prior to arrival. This eventually led him to present to the ED on 02/09 where he was afebrile, tachycardic in the 130's, hypertensive, and tolerating RA. His labs were significant for leukocytosis (27.7), LA 7.10, AG 40, glucose 125. Urinalysis revealed ketones present and toxicology was positive for alcohol and can nabinoids. ABG confirmed suspicion of metabolic acidosis. Pt was admitted to the ICU for metabolic acidosis due to alcoholic ketoacidosis for medical care. While in the hospital he received D5 lactated ringer and 1 unit of Bicarb due to acidosis. His thiamine and folic acid were replaced given alcoholism. His labwork improved rapidly and by 02/10 his vitals were stable, his leukocytosis had resolved (10.5), anion Gap had closed (10), and his Lactic Acidosis had improved (1.3). During his stay he was seen by social work who discussed with him ways to afford his mental health medications. During his stay he was under [facility] protocol for alcohol withdrawl but did rather well, only having minor anxiety, and no tremors. Of note, his phosphorous was low (0.9) on 02/10 labs, and he received 10mmol Kphos IV, and should be followed up in the outpatient setting. He was deemed safe for discharge and 1 month Home med refills were sent to the pharmacy. ROSA JOSEPH Labs (last 24 hrs) Laboratory Tests 02/09/23 02:47: White Blood Count 27.7H, Red Blood Count 5.28, Hemoglobin 16.9, Hematocrit 50, Mean Corpuscular Volume 95, Mean Corpuscular Hemoglobin 32, Mean Corpuscular Hemoglobin Concent 34, Red Cell Distribution Width 12.4, Platelet Count 282, Mean Platelet Volume 9.8, Immature Granulocyte % (Auto) 0, Neutrophils (%) (Auto) 36L, Lymphocytes (%) (Auto) 3L, Monocytes (%) (Auto) 9, Eosinophils (%) (Auto) 51H, Basophils (%) (Auto) 0, Neutrophils # (Auto) 9.9H, Lymphocytes # (Auto) 0.9L, Monocytes # (Auto) 2.6H, Eosinophils # (Auto) 14.2H, Basophils # (Auto) 0.1, Immature Granulocyte # (Auto) 0.1, Neutrophils % (Manual) 91, Lymphocytes % (Manual) 2, Monocytes % (Manual) 6, Eosinophils % (Manual) 1, Toxic Granulation 2+, Stomatocytes SLIGHT, Sodium Level 142, Potassium Level 4.5, Chloride Level 97L, Carbon Dioxide Level 5*L, Anion Gap 40H, Blood Urea Nitrogen 15, Creatinine 1.28, Estimat Glomerular Filtration Rate 75, BUN/Crea tinine Ratio 12, Glucose Level 125H, Calcium Level 9.0, Corrected Calcium , Phosphorus Level 6.7H, Magnesium Level 1.7, Total Bilirubin 0.8, Aspartate Amino Transf (AST/SGOT) 87H, Alanine Aminotransferase (ALT/SGPT) 48, Alkaline Phosphatase 93, Total Protein 8.5H, Albumin 5.2H, Amylase Level 64, Lipase 19, Serum Alcohol 44H 02/09/23 03:10: Urine Color YELLOW, Urine Clarity CLEAR, Urine pH 6.0, Urine Specific Delong >=1.030, Urine Protein TRACEH, Urine Glucose (UA) NEGATIVE, Urine Ketones 3+H, Urine Nitrite NEGATIVE, Urine Bilirubin NEGATIVE, Urine Urobilinogen 0.2, Urine Leukocyte Esterase NEGATIVE, Urine RBC (Auto) NEGATIVE, Urine RBC NONE, Urine WBC NONE, Urine Crystals NONE, Urine Bacteria NEGATIVE, Urine Casts PRESENT, Urine Hyaline Casts 0-2H, Urine Mucus NEGATIVE, Urine Culture Indicated NO, Urine Opiates Screen NEGATIVE, Urine Oxycodone Screen NEGATIVE, Urine Methadone Screen NEGATIVE, Urine Propoxyphene Screen NEGATIVE, Urine Barbiturates Screen NEGATIVE, Ur Tricyclic Antidepressants Screen NEGATIVE, Urine Phencyclidine Screen NEGATIVE, Urine Amphetamines Screen NEGATIVE, Urine Methamphetamines Screen NEGATIVE, Urine Benzodiazepines Screen NEGATIVE, Urine Cocaine Screen NEGATIVE, Urine Cannabinoids Screen POSITIVEH 02/09/23 03:55: Lactic Acid Level 7.10*H 02/09/23 06:11: Lactic Acid Level 2.81*H 02/09/23 07:36: Blood Gas Puncture Site R RAD, Blood Gas Patient Temperature 37.1, Arterial Blood pH 7.33*L, Arterial Blood Partial Pressure CO2 23L, Arterial Blood Partial Pressure O2 132H, Arterial Blood HCO3 12*L, Arterial Blood Total CO2 12.5L, Arterial Blood Oxygen Saturation 99, Arterial Blood Base Excess -13.1L, Devyn Test YES-POS, Blood Gas Ventilator Setting NO, Blood Gas Inspired Oxygen NA 02/09/23 10:14: Sodium Level 131L, Potassium Level 4.7, Chloride Level 102, Carbon Dioxide Level 14L, Anion Gap 15H, Blood Urea Nitrogen 11, Creatinine 1.19, Estimat Glomerular Filtration Rate 82, BUN/Creatinine Ratio 9, Glucose Level 242H, Lactic Acid Level 1.30, Calcium Level 7.9L, Phosphorus Level 1.6L, Magnesium Level 2.4 02/09/23 13:59: Sodium Level 133L, Potassium Level 3.9, Chloride Level 103, Carbon Dioxide Level 21, Anion Gap 9, Blood Urea Nitrogen 10, Creatinine 1.13, Estimat Glomerular Filtration Rate 87, BUN/Creatinine Ratio 9, Glucose Level 230H, Calcium Level 7.9L, Phosphorus Level 1.4L, Magnesium Level 2.6H 02/09/23 18:27: Sodium Level 135, Potassium Level 3.7, Chloride Level 104, Carbon Dioxide Level 22, Anion Gap 9, Blood Urea Nitrogen 9, Creatinine 0.96, Estimat Glomerular Filtration Rate 106, BUN/Creatinine Ratio 9, Glucose Level 153H, Calcium Level 8.0L, Phosphorus Level 1.4L, Magnesium Level 2.4 02/09/23 21:45: Sodium Level 135, Potassium Level 3.7, Chloride Level 103, Carbon Dioxide Level 23, Anion Gap 9, Blood Urea Nitrogen 8, Creatinine 0.88, Estimat Glomerular Filtration Rate 116, BUN/Creatinine Ratio 9, Glucose Level 145H, Calcium Level 8.1L, Phosphorus Level 1.1L, Magnesium Level 2.2 02/10/23 04:50: Sodium Level 138, Potassium Level 3.8, Chloride Level 105, Carbon Dioxide Level 23, Anion Gap 10, Blood Urea Nitrogen 6L, Creatinine 0.81, Estimat Glomerular Filtration Rate 119, BUN/Creatinine Ratio 7, Glucose Level 158H, Calcium Level 8.3L, Phosphorus Level 0.9*L, Magnesium Level 2.1, White Blood Count 10.5, Red Blood Count 4.13L, Hemoglobin 13.4#, Hematocrit 38L, Mean Corpuscular Volume 92, Mean Corpuscular Hemoglobin 32, Mean Corpuscular Hemoglobin Concent 35, Red Cell Distribution Width 12.1, Platelet Count 136, Mean Platelet Volume 10.3, Immature Granulocyte % (Auto) 1, Neutrophils (%) (Auto) 78H, Lymphocytes (%) (Auto) 12, Monocytes (%) (Auto) 9, Eosinophils (%) (Auto) 0, Basophils (%) (Auto) 0, Neutrophils # (Auto) 8.3H, Lymphocytes # (Auto) 1.2, Monocytes # (Auto) 1.0, Eosinophils # (Auto) 0.0, Basophils # (Auto) 0.0, Immature Granulocyte # (Auto) 0.1, Percent Immature Platelet Fraction 4.1, Corrected Calcium 8.5, Total Bilirubin 1.0, Aspartate Amino Transf (AST/SGOT) 33, Alanine Aminotransferase (ALT/SGPT) 25, Alkaline Phosphatase 57, Total Protein 5.7L, Albumin 3.7 Microbiology 02/09/23 MRSA Screen - Final, Complete MRSA not isolated 02/09/23 Blood Culture - Preliminary, Resulted No growth Pending Labs Microbiology Date/Time Source Procedure Growth Status 02/09/23 05:52 Nasal MRSA Screen - Final MRSA not isolated Complete 02/09/23 04:20 Peripheral Rt Ac Blood Culture - Preliminary No growth Resulted 02/09/23 03:55 Peripheral Lt Ac Blood Culture - Preliminary No growth Resulted Laboratory Tests 02/09/23 02:47: White Blood Count 27.7, Red Blood Count 5.28, Hemoglobin 16.9, Hematocrit 50, Mean Corpuscular Volume 95, Mean Corpuscular Hemoglobin 32, Mean Corpuscular Hemoglobin Concent 34, Red Cell Distribution Width 12.4, Platelet Count 282, Mean Platelet Volume 9.8, Immature Granulocyte % (Auto) 0, Neutrophils (%) (Auto) 36, Lymphocytes (%) (Auto) 3, Monocytes (%) (Auto) 9, Eosinophils (%) (Auto) 51, Basophils (%) (Auto) 0, Neutrophils # (Auto) 9.9, Lymphocytes # (Auto) 0.9, Monocytes # (Auto) 2.6, Eosinophils # (Auto) 14.2, Basophils # (Auto) 0.1, Immature Granulocyte # (Auto) 0.1, Neutrophils % (Manual) 91, Lymphocytes % (Manual) 2, Monocytes % (Manual) 6, Eosinophils % (Manual) 1, Toxic Granulation 2+, Stomatocytes SLIGHT, Sodium Level 142, Potassium Level 4.5, Chloride Level 97, Carbon Dioxide Level 5, Anion Gap 40, Blood Urea Nitroge n 15, Creatinine 1.28, Estimat Glomerular Filtration Rate 75, BUN/Creatinine Ratio 12, Glucose Level 125, Calcium Level 9.0, Corrected Calcium , Phosphorus Level 6.7, Magnesium Level 1.7, Total Bilirubin 0.8, Aspartate Amino Transf (AST/SGOT) 87, Alanine Aminotransferase (ALT/SGPT) 48, Alkaline Phosphatase 93, Total Protein 8.5, Albumin 5.2, Amylase Level 64, Lipase 19, Serum Alcohol 44 02/09/23 03:10: Urine Color YELLOW, Urine Clarity CLEAR, Urine pH 6.0, Urine Specific Delong >=1.030, Urine Protein TRACE, Urine Glucose (UA) NEGATIVE, Urine Ketones 3+, Urine Nitrite NEGATIVE, Urine Bilirubin NEGATIVE, Urine Urobilinogen 0.2, Urine Leukocyte Esterase NEGATIVE, Urine RBC (Auto) NEGATIVE, Urine RBC NONE, Urine WBC NONE, Urine Crystals NONE, Urine Bacteria NEGATIVE, Urine Casts PRESENT, Urine Hyaline Casts 0-2, Urine Mucus NEGATIVE, Urine Culture Indicated NO, Urine Opiates Screen NEGATIVE, Urine Oxycodone Screen NEGATIVE, Urine Methadone Screen NEGATIVE, Urine Propoxyphene Screen NEGATIVE, Urine Barbiturates Screen NEGATIVE, Ur Tricyclic Antidepressants Screen NEGATIVE, Urine Phencyclidine Screen NEGATIVE, Urine Amphetamines Screen NEGATIVE, Urine Methamphetamines Screen NEGATIVE, Urine Benzodiazepines Screen NEGATIVE, Urine Cocaine Screen NEGATIVE, Urine Cannabinoids Screen POSITIVE 02/09/23 03:55: Lactic Acid Level 7.10 02/09/23 06:11: Lactic Acid Level 2.81 02/09/23 07:36: Blood Gas Puncture Site R RAD, Blood Gas Patient Temperature 37.1, Arterial Blood pH 7.33, Arterial Blood Partial Pressure CO2 23, Arterial Blood Partial Pressure O2 132, Arterial Blood HCO3 12, Arterial Blood Total CO2 12.5, Arterial Blood Oxygen Saturation 99, Arterial Blood Base Excess -13.1, Devyn Test YES- POS, Blood Gas Ventilator Setting NO, Blood Gas Inspired Oxygen NA 02/09/23 10:14: Sodium Level 131, Potassium Level 4.7, Chloride Level 102, Carbon Dioxide Level 14, Anion Gap 15, Blood Urea Nitrogen 11, Creatinine 1.19, Estimat Glomerular Filtration Rate 82, BUN/Creatinine Ratio 9, Glucose Level 242, Lactic Acid Level 1.30, Calcium Level 7.9, Phosphorus Level 1.6, Magnesium Level 2.4 02/09/23 13:59: Sodium Level 133, Potassium Level 3.9, Chloride Level 103, Carbon Dioxide Level 21, Anion Gap 9, Blood Urea Nitrogen 10, Creatinine 1.13, Estimat Glomerular Filtration Rate 87, BUN/Creatinine Ratio 9, Glucose Level 230, Calcium Level 7.9, Phosphorus Level 1.4, Magnesium Level 2.6 02/09/23 18:27: Sodium Level 135, Potassium Level 3.7, Chloride Level 104, Carbon Dioxide Level 22, Anion Gap 9, Blood Urea Nitrogen 9, Creatinine 0.96, Estimat Glomerular Filtration Rate 106, BUN/Creatinine Ratio 9, Glucose Level 153, Calcium Level 8.0, Phosphorus Level 1.4, Magnesium Level 2.4 02/09/23 21:45: Sodium Level 135, Potassium Level 3.7, Chloride Level 103, Carbon Dioxide Level 23, Anion Gap 9, Blood Urea Nitrogen 8, Creatinine 0.88, Estimat Glomerular Filtration Rate 116, BUN/Creatinine Ratio 9, Glucose Level 145, Calcium Level 8.1, Phosphorus Level 1.1, Magnesium Level 2.2 02/10/23 04:50: Sodium Level 138, Potassium Level 3.8, Chloride Level 105, Carbon Dioxide Level 23, Anion Gap 10, Blood Urea Nitrogen 6, Creatinine 0.81, Estimat Glomerular Filtration Rate 119, BUN/Creatinine Ratio 7, Glucose Level 158, Calcium Level 8.3, Phosphorus Level 0.9, Magnesium Level 2.1, White Blood Count 10.5, Red Blood Count 4.13, Hemoglobin 13.4, Hematocrit 38, Mean Corpuscular Volume 92, Me an Corpuscular Hemoglobin 32, Mean Corpuscular Hemoglobin Concent 35, Red Cell Distribution Width 12.1, Platelet Count 136, Mean Platelet Volume 10.3, Immature Granulocyte % (Auto) 1, Neutrophils (%) (Auto) 78, Lymphocytes (%) (Auto) 12, Monocytes (%) (Auto) 9, Eosinophils (%) (Auto) 0, Basophils (%) (Auto) 0, Neutrophils # (Auto) 8.3, Lymphocytes # (Auto) 1.2, Monocytes # (Auto) 1.0, Eosinophils # (Auto) 0.0, Basophils # (Auto) 0.0, Immature Granulocyte # (Auto) 0.1, Percent Immature Platelet Fraction 4.1, Corrected Calcium 8.5, Total Bilirubin 1.0, Aspartate Amino Transf (AST/SGOT) 33, Alanine Aminotransferase (ALT/SGPT) 25, Alkaline Phosphatase 57, Total Protein 5.7, Albumin 3.7 Discharge Home Medications: Active Scripts Active Multivitamin 1 Each Tablet 1 Each PO DAILY Pepcid (Famotidine) 20 Mg Tablet 20 Mg PO BID Mirtazapine 30 Mg Tablet 15 Mg PO HS Neurontin (Gabapentin) 300 Mg Capsule 300 Mg PO BID Instructions to patient/family Please see electronic discharge instructions given to patient. Diagnosis/Problems Diagnosis/Problems (1) Intractable nausea and vomiting Status: Acute (2) Leukocytosis Status: Acute (3) Anxiety Status: Acute (4) Alcoholism Status: Acute (5) Lactic acidosis Status: Acute (6) Acute alcoholic intoxication Status: Acute ANDREW TUCKER DO Feb 10, 2023 09:18"
[2023-02-10 09:19] VITALS: BP 129/94
[2023-02-10] MEDS ORDERED: RT-ALBUTEROL SULF 2.5 MG/3 ML PRE-MIX VIAL INH PRN (09:30)
--- NOTE | 2023-02-10 10:46 | Progress Note ---
ROSA JOSEPH 02/10/23 1046: Progress Note Hospital Course 32 year old male with history of alcoholism, HTN, anxiety, and Depression with intermittent SI Who was admitted to [facility] Int[facility] Unit from 02/09- 02/10 for alcoholic ketoacidosis. When seen initially e reports drinking 0.5 - 1.0 pints of vodka daily, but drank 1.5 pints Wednesday night (02/07) and developed the intractable vomiting the next morning upon waking prior to arrival. This eventually led him to present to the ED on 02/09 where he was afebrile, tachycardic in the 130's, hypertensive, and tolerating RA. His labs were significant for leukocytosis (27.7), LA 7.10, AG 40, glucose 125. Urinalysis revealed ketones present and toxicology was positive for alcohol and cannabinoids. ABG confirmed suspicion of metabolic acidosis. Pt was admitted to the ICU for metabolic acidosis due to alcoholic ketoacidosis for medical care. While in the hospital he received D5 lactated ringer and 1 unit of Bicarb due to acidosis. His thiamine and folic acid were replaced given alcoholism. His labwork improved rapidly and by 02/10 his vitals were stable, his leukocytosis had resolved (10.5), anion Gap had closed (10), and his Lactic Acidosis had improved (1.3). During his stay he was seen by social work who discussed with him ways to afford his mental health medications. During his stay he was under [facility] protocol for alcohol withdrawl but did rather well, only having minor anxiety, and no tremors. Of note, his phosphorous was low (0.9) on 02/10 labs, and he received 10mmol Kphos IV, and should be followed up in the outpatient setting. He was deemed safe for discharge and 1 month Home med refills were sent to the pharmacy. JENNIFER TUCKER DO 02/11/23 0517: Supervisory-Addendum Brief Verification & Attestation Participated in pt care: history, MDM, physical Personally performed: exam, history, MDM, supervision of care Care discussed with: Medical Student Procedures: n/a Results interpretation: Verified all documentation Verification and Attestation of Medical Student E/M Service A medical student performed and documented this service in my presence. I reviewed and verified all information documented by the medical student and made modifications to such information, when appropriate. I personally performed the physical exam and medical decision making. Jennifer Tucker, Feb 11, 2023,05:17 ROSA JOSEPH Feb 10, 2023 10:46 JENNIFER TUCKER DO Feb 11, 2023 05:17
[2023-02-10] MEDS ORDERED: RT-ALBUTEROL SULF 2.5 MG/3 ML PRE-MIX VIAL INH SCH (21:00)
== END 2023-02-10 10:30 | disposition home or self-care (01) | DRG 872 ==
LOC: EDUNIT# 02:31 → ER 02:32 → ICU 05:40
PROVIDERS: ADMIT Internal Medicine; ATTEND Internal Medicine
DX: A41.9 Sepsis, unspecified organism (principal); N17.9 Acute kidney failure, unspecified; E87.21 Acute metabolic acidosis; R65.20 Severe sepsis without septic shock; F10.10 Alcohol abuse, uncomplicated; F32.A Depression, unspecified; F41.9 Anxiety disorder, unspecified; F10.129 Alcohol abuse with intoxication, unspecified
CPT/HCPCS: 36415; 71045; 74177; 80048; 80053; 80306; 80320; 81000; 82150; 82805; 83605; 83690; 83735; 84100; 85007; 85025; 85027; 87040; 87081; 93041

== ENCOUNTER 2023-03-22 16:48 | Emergency (ER) | payer SELFPAY ==
[~2023-03-22] VITALS: Ht 188 cm; Wt 72.6 kg
[~2023-03-22 16:48] MED LIST changes: +FAMO-119 PO; +GABA300C PO; +MIRT-69 PO; +MULT-1136 PO
[2023-03-22] MEDS ORDERED: ONDANSETRON 4 MG/2 ML (SDV) Z0FRAN IVP ONE (17:15)
[2023-03-22] MEDS ORDERED: PANTOPRAZOLE 40 MG (PROTONIX) VIAL IV ONE (17:15)
[2023-03-22] MEDS ORDERED: LACTATED RINGERS 1,000 ML IV SCH (17:15)
--- NOTE | 2023-03-22 17:18 | ED Abdominal Pain ---
General Chief Complaint: Abdominal/GI Problems Stated Complaint: N/V Nursing Triage Note: PT TO ROOM 05 VIA [facility] WITH C/O N/V AFTER DRINKING "WAY TOO MUCH LAST NIGHT". PT REPORTS BLOOD IN VOMIT. (YASMANY DAVID MD) History of Present Illness Date Seen by Provider: March 22, 2023 Time Seen by Provider: 17:05 Initial Comments Patient is a 32-year-old male who presents to the emergency room with a chief complaint of "feeling like crap" nausea and vomiting. He states that he drank way too much over the last 24 hours. He states he vomited today and the water was "pink" with flecks of blood. He has never done that before. He states he drinks a pint to a pint and a half of vodka a day when he is drinking heavy. He states he starts drinking when he runs out of his psych meds. He cannot recall the names of them currently. He states he has been out of his psych meds for about 2 weeks. Longstanding alcoholic, multiple prior [facility] unit admits at [facility] in [place]. He has had some episodes of sobriety, 1 as long as a year. He denies fevers or chills. He does have crampy abdominal discomfort. He denies black or bloody stools. Normal urination. No fevers or chills. Last alcohol was sometime yesterday. He is not sure when as he "blacked out". Occasionally smokes cigarettes and marijuana. Timing/Duration: 24 Hours Severity/Quality: Moderate, Cramping Location: Generalized Abdomen Radiation: No Radiation Associated Symptoms: Diaphoresis, Nausea/Vomiting (YASMANY DAVID MD) Allergies and Home Medications Allergies Coded Allergies: No Known Drug Allergies (Unverified , 09/11/21) Patient Home Medication List Home Medication List Reviewed: Yes (YASMANY DAVID MD) Famotidine (Pepcid) 20 Mg Tablet, 20 MG PO BID Prescribed by: ANDREW TUCKER on 02/10/23916 Gabapentin (Neurontin) 300 Mg Capsule, 300 MG PO BID Prescribed by: ANDREW TUCKER on 02/10/23916 Mirtazapine (Mirtazapine) 30 Mg Tablet, 15 MG PO HS Prescribed by: ANDREW TUCKER on 02/10/23916 Multivitamin (Multivitamin) 1 Each Tablet, 1 EACH PO DAILY Prescribed by: ANDREW TUCKER on 02/10/23916 Review of Systems Review of Systems Constitutional: see HPI EENTM: No Symptoms Reported Respiratory: No Symptoms Reported Cardiovascular: No Symptoms Reported Gastrointestinal: Abdominal Pain, Nausea, Vomiting, Other (Hematemesis) Genitourinary: No Symptoms Reported Musculoskeletal: no symptoms reported Skin: other (Clammy) Psychiatric/Neurological: Depressed, Emotional Problems, Tremors Endocrine: No Symptoms Reported (YASMANY DAVID MD) All Other Systems Reviewed Negative Unless Noted: Yes (YASMANY DAVID MD) Past Gxwzfzr-Mtzfob-Wkdxge Hx Patient Social History Tobacco Use?: Yes Tobacco type used: Cigarettes Smoking Status: Heavy Tobacco Smoker Smokeless Tobacco Frequency: Never a User Use of E-Cig and/or Vaping dev: No Use of E-Cig and/or Vaping Jose: Former User Substance use?: Yes Substance type: Marijuana Alcohol Frequency: Several times a month Pt feels they are or have been: No (YASMANY DAVID MD) Immunizations Up To Date First/Initial COVID19 Vaccinat: X1 Second COVID19 Vaccination Elliot: NA Third COVID19 Vaccination Date: STATES J&J APPROX 1 YEAR AGO (YASMANY DAVID MD) Past Medical History Surgery/Hospitalization HX: ANXIETY, DEPRESSION, HTN, ETOH ABUSE Surgeries: No Respiratory: No Cardiac: No Neurological: No Genitourinary: No Gastrointestinal: No Musculoskeletal: No Endocrine: No HEENT: No Loss of Vision: Denies Hearing Impairment: Denies Cancer: No Psychosocial: Yes (ALCOHOLISM; SUICIDAL IDEATION WITH INTOXICATION) Anxiety, Depression Integumentary: No Blood Disorders: No (YASMANY DAVID MD) Family Medical History Diabetes (YASMANY DAVID MD) Physical Exam Vital Signs Vital Signs - First Documented 03/22/23 16:50 Temp 35.9 Pulse 118 Resp 20 B/P (MAP) 137/103 (114) O2 Delivery Room Air (ARNOLDO OBRIENH Luis A DO) Vital Signs Capillary Refill : Less Than 3 Seconds (YASMANY DAVID MD) Height/Weight/BMI Height: '" Weight: lbs. oz. 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, no motor/sensory deficits, alert, normal mood/affect, oriented x 3 Skin: damp, pallor (YASMANY DAVID MD) Progress/Results/Core Measures Results/Orders Lab Results Laboratory Tests Test 03/22/23 17:25 Range/Units White Blood Count 16.4 H 4.3-11.0 10^3/uL Red Blood Count 4.98 4.30-5.52 10^6/uL Hemoglobin 15.6 13.3-17.7 g/dL Hematocrit 44 40-54 % Mean Corpuscular Volume 89 80-99 fL Mean Corpuscular Hemoglobin 31 25-34 pg Mean Corpuscular Hemoglobin Concent 35 32-36 g/dL Red Cell Distribution Width 12.2 10.0-14.5 % Platelet Count 275 130-400 10^3/uL Mean Platelet Volume 9.9 9.0-12.2 fL Immature Granulocyte % (Auto) 1 % Neutrophils (%) (Auto) 85 H 42-75 % Lymphocytes (%) (Auto) 9 L 12-44 % Monocytes (%) (Auto) 5 0-12 % Eosinophils (%) (Auto) 0 0-10 % Basophils (%) (Auto) 0 0-10 % Neutrophils # (Auto) 13.9 H 1.8-7.8 10^3/uL Lymphocytes # (Auto) 1.4 1.0-4.0 10^3/uL Monocytes # (Auto) 0.9 0.0-1.0 10^3/uL Eosinophils # (Auto) 0.0 0.0-0.3 10^3/uL Basophils # (Auto) 0.0 0.0-0.1 10^3/uL Immature Granulocyte # (Auto) 0.1 0.0-0.1 10^3/uL Neutrophils % (Manual) 89 % Lymphocytes % (Manual) 7 % Monocytes % (Manual) 2 % Hypersegmented Neutrophils SLIGHT Reactive Lymphocytes 2 % Smudge Cells SLIGHT Blood Morphology Comment NORMAL (MINERVA OBRIEN DO) Medications Given in ED Current Medications Medications Dose Ordered Sig/Moi Route Start Time Stop Time Status Last Admin Dose Admin Ondansetron HCl 8 mg ONCE ONCE IVP 03/22/23 17:15 03/22/23 17:16 DC 03/22/23 17:30 8 MG Pantoprazole 40 mg ONCE ONCE IV 03/22/23 17:15 03/22/23 17:16 DC 03/22/23 17:30 40 MG (MINERVA OBRIEN DO) Vital Signs/I&O 03/22/23 16:50 Temp 35.9 Pulse 118 Resp 20 B/P (MAP) 137/103 (114) O2 Delivery Room Air (MINERVA OBRIEN DO) Blood Pressure Mean: 114 Departure Communication (Admissions) Patient is hemodynamically stable. Hemoglobin stable despite report of pain flecks in his emesis. There is no indication of major GI bleeding. This may have been related to something he ate or some slight gastritis. He is on pantoprazole and will continue this. He has been out of his mirtazapine and gabapentin went ahead and refilled these for 2 weeks so that he can get into see his primary doctor and hopefully get refills continuing. He is not suicidal, homicidal. He is not in acute alcohol withdrawal and states he is actually feeling much better. He is discharged home in stable condition. (MINERVA OBRIEN DO) Impression Primary Impression: Alcohol dependence Qualified Codes: F10.20 - Alcohol dependence, uncomplicated Disposition: 01 HOME, SELF-CARE Condition: Stable Departure-Patient Inst. Referrals: NO,LOCAL PHYSICIAN (PCP/Family) Primary Care Physician Patient Instructions: Alcohol Use Disorder ED Add. Discharge Instructions: I have refilled your gabapentin and mirtazapine for 2 weeks. Any other refills will need to come from her primary care doctor. Continue to attempt to decrease your alcohol consumption with the hope of eventually quitting. Return to the emergency department for any severe concerns. Follow-up with your primary doctor for any nonemergent needs. All discharge instructions reviewed with patient and/or family. Voiced understanding. Scripts Gabapentin (Neurontin) 300 Mg Capsule 300 MG PO BID for 14 Days, #28 CAP Prov: MINERVA OBRIEN DO 03/22/23 Mirtazapine (Mirtazapine) 15 Mg Tablet 15 MG PO HS for 14 Days, #14 TAB Prov: MINERVA OBRIEN DO 03/22/23 YASMANY DAVID MD March 22, 2023 17:18 MINERVA OBRIEN DO March 22, 2023 18:36
[2023-03-22 17:38] LABS: BASOPHILS % (AUTO) 0 % (0-10); EOSINOPHILS % (AUTO) 0 % (0-10); HEMATOCRIT 44 % (40-54); HEMOGLOBIN 15.6 g/dL (13.3-17.7); LYMPHOCYTES # (AUTO) 1.4 10^3/uL (1.0-4.0); LYMPHOCYTES % (AUTO) 9 % (12-44); MEAN CORPUSCULAR HEMOGLOBIN 31 pg (25-34); MEAN CORPUSCULAR HGB CONC 35 g/dL (32-36); MEAN CORPUSCULAR VOLUME 89 fL (80-99); MEAN PLATELET VOLUME 9.9 fL (9.0-12.2); MONOCYTES # (AUTO) 0.9 10^3/uL (0.0-1.0); MONOCYTES % (AUTO) 5 % (0-12); NEUTROPHILS # (AUTO) 13.9 10^3/uL (1.8-7.8); NEUTROPHILS % (AUTO) 85 % (42-75); PLATELET COUNT 275 10^3/uL (130-400); WHITE BLOOD COUNT 16.4 10^3/uL (4.3-11.0)
[2023-03-22 18:23] LABS: HYPERSEGMENTED NEUT SLIGHT; LYMPHOCYTES % (MANUAL) 7 %; MONOCYTES % (MANUAL) 2 %; NEUTROPHILS % (MANUAL) 89 %; RBC MORPH NORMAL; REACTIVE LYMPHOCYTES 2 %
[2023-03-22] MEDS ORDERED: GABA300C PO (18:39)
[2023-03-22] MEDS ORDERED: MIRT-68 PO (18:39)
[2023-03-22 19:02] VITALS: BP 127/85
== END 2023-03-22 19:02 | disposition home or self-care (01) ==
LOC: EDUNIT# 16:48 → ER 16:50
DX: F10.20 Alcohol dependence, uncomplicated (principal); F17.210 Nicotine dependence, cigarettes, uncomplicated; Z79.899 Other long term (current) drug therapy
CPT/HCPCS: 36415; 85007; 85027

== ENCOUNTER 2023-05-06 03:32 | Emergency (ER) | payer SELFPAY ==
[~2023-05-06] VITALS: Ht 188 cm; Wt 72.6 kg
--- NOTE | 2023-05-06 03:37 | ED General ---
General Stated Complaint: DRUNK/VOMITING Source of Information: Patient, EMS History of Present Illness Date Seen by Provider: May 06, 2023 Time Seen by Provider: 03:37 Initial Comments Patient is a 32-year-old male who is a chronic daily drinker presents to the emergency room with a chief complaint of several hours nausea, vomiting, dry heaves. Patient states that he had about a pint and a half of vodka earlier in the evening about 8 hours ago and started vomiting about 4 hours ago. He endorses streaks of blood in his vomit. He is got diffuse abdominal discomfort. Denies black or bloody stools. Has not been able to take anything for the nausea and vomiting. Has had similar episodes in the past related to drinking. Denies having a history of pancreatitis. Has had alcoholic ketoacidosis in the past. Timing/Duration: 4-6 Hours Severity: Severe Associated Systoms: Nausea/Vomiting, Weakness Allergies and Home Medications Allergies Coded Allergies: No Known Drug Allergies (Unverified , 09/11/21) Patient Home Medication List Home Medication List Reviewed: Yes Famotidine (Pepcid) 20 Mg Tablet, 20 MG PO BID Prescribed by: ANDREW TUCKER on 02/10/23916 Gabapentin (Neurontin) 300 Mg Capsule, 300 MG PO BID Prescribed by: ANDREW TUCKER on 02/10/23916 Gabapentin (Neurontin) 300 Mg Capsule, 300 MG PO BID Prescribed by: MINERVA OBRIEN MD on 03/22/231838 Mirtazapine (Mirtazapine) 30 Mg Tablet, 15 MG PO HS Prescribed by: ANDREW TUCKER on 02/10/23916 Mirtazapine (Mirtazapine) 15 Mg Tablet, 15 MG PO HS Prescribed by: MINERVA OBRIEN MD on 03/22/231838 Multivitamin (Multivitamin) 1 Each Tablet, 1 EACH PO DAILY Prescribed by: ANDREW TUCKER on 02/10/23916 Ondansetron (Ondansetron Odt) 4 Mg Tab.rapdis, 4 MG SL Q8H PRN for NAUSEA/VOMITING Prescribed by: YASMANY DAVID on 05/06/23616 Pantoprazole Sodium (Protonix) 40 Mg Tablet.dr, 40 MG PO DAILY Prescribed by: YASMANY DAVID on 05/06/23616 Review of Systems Review of Systems Constitutional: see HPI EENTM: throat pain Respiratory: no symptoms reported Cardiovascular: chest pain Gastrointestinal: abdominal pain, nausea, vomiting Genitourinary: no symptoms reported Musculoskeletal: no symptoms reported Skin: no symptoms reported All Other Systems Reviewed Negative Unless Noted: Yes Past Zbswdza-Lwivnc-Stohrg Hx Immunizations Up To Date First/Initial COVID19 Vaccinat: X1 Second COVID19 Vaccination Elliot: NA Third COVID19 Vaccination Date: STATES J&J APPROX 1 YEAR AGO Past Medical History Surgery/Hospitalization HX: ANXIETY, DEPRESSION, HTN, ETOH ABUSE Surgeries: No Respiratory: No Cardiac: No Neurological: No Genitourinary: No Gastrointestinal: No Musculoskeletal: No Endocrine: No HEENT: No Loss of Vision: Denies Hearing Impairment: Denies Cancer: No Psychosocial: Yes (ALCOHOLISM; SUICIDAL IDEATION WITH INTOXICATION) Anxiety, Depression Integumentary: No Blood Disorders: No Family Medical History Diabetes Physical Exam Vital Signs Vital Signs - First Documented 05/06/23 03:35 Temp 36.7 Pulse 128 Resp 20 B/P (MAP) 137/97 (110) Pulse Ox 95 O2 Delivery Room Air Capillary Refill : Height, Weight, BMI Height: '" Weight: lbs. oz. 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, 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 Norm as Tested Skin: Warm/Dry, Pallor Progress/Results/Core Measures Suspected Sepsis SIRS Temperature: Pulse: Respiratory Rate: Laboratory Tests 05/06/23 03:38: White Blood Count 11.7H Blood Pressure / Mean: Laboratory Tests 05/06/23 03:38: Creatinine 1.01, Platelet Count 247, Total Bilirubin 0.7 Results/Orders Lab Results Laboratory Tests Test 05/06/23 03:38 Range/Units White Blood Count 11.7 H 4.3-11.0 10^3/uL Red Blood Count 5.38 4.30-5.52 10^6/uL Hemoglobin 16.8 13.3-17.7 g/dL Hematocrit 48 40-54 % Mean Corpuscular Volume 89 80-99 fL Mean Corpuscular Hemoglobin 31 25-34 pg Mean Corpuscular Hemoglobin Concent 35 32-36 g/dL Red Cell Distribution Width 12.4 10.0-14.5 % Platelet Count 247 130-400 10^3/uL Mean Platelet Volume 10.1 9.0-12.2 fL Immature Granulocyte % (Auto) 0 % Neutrophils (%) (Auto) 69 42-75 % Lymphocytes (%) (Auto) 25 12-44 % Monocytes (%) (Auto) 6 0-12 % Eosinophils (%) (Auto) 0 0-10 % Basophils (%) (Auto) 0 0-10 % Neutrophils # (Auto) 8.1 H 1.8-7.8 10^3/uL Lymphocytes # (Auto) 2.9 1.0-4.0 10^3/uL Monocytes # (Auto) 0.7 0.0-1.0 10^3/uL Eosinophils # (Auto) 0.0 0.0-0.3 10^3/uL Basophils # (Auto) 0.1 0.0-0.1 10^3/uL Immature Granulocyte # (Auto) 0.0 0.0-0.1 10^3/uL Sodium Level 142 135-145 MMOL/L Potassium Level 3.6 3.6-5.0 MMOL/L Chloride Level 96 L 98-107 MMOL/L Carbon Dioxide Level 16 L 21-32 MMOL/L Anion Gap 30 H 5-14 MMOL/L Blood Urea Nitrogen 15 7-18 MG/DL Creatinine 1.01 0.60-1.30 MG/DL Estimat Glomerular Filtration Rate 100 BUN/Creatinine Ratio 15 Glucose Level 82 70-105 MG/DL Calcium Level 8.9 8.5-10.1 MG/DL Corrected Calcium 8.5-10.1 MG/DL Total Bilirubin 0.7 0.1-1.0 MG/DL Aspartate Amino Transf (AST/SGOT) 67 H 5-34 U/L Alanine Aminotransferase (ALT/SGPT) 52 0-55 U/L Alkaline Phosphatase 93 40-136 U/L Total Protein 7.7 6.4-8.2 GM/DL Albumin 4.9 H 3.2-4.5 GM/DL Lipase 26 8-78 U/L My Orders Orders - YASMANY DAVID MD Ed Iv/Invasive Line Start (05/06/23 03:46) Cbc With Automated Diff (05/06/23 03:46) Comprehensive Metabolic Panel (05/06/23 03:46) Lipase (05/06/23 03:46) Promethazine Injection (Phenergan Injec (05/06/23 04:00) Lactated Ringers (Lr 1000 Ml Iv Solution (05/06/23 05:30) Ondansetron Injection (Zofran Injectio (05/06/23 05:30) Medications Given in ED Vital Signs/I&O 05/06/23 05/06/23 03:35 07:15 Temp 36.7 36.2 Pulse 128 79 Resp 20 15 B/P (MAP) 137/97 (110) 134/75 Pulse Ox 95 98 O2 Delivery Room Air Room Air Capillary Refill : Progress Note : Time: 06:15 Progress Note Patient seen and examined by me. Evaluation today includes physical exam, CBC, Chem-12, lipase. Pertinent physical exam findings well-developed well-nourished thin male in moderate distress due to diffuse abdominal discomfort and nausea and vomiting. Patient currently "dry heaving" into a bucket at the bedside. He is tachycardic in the mid 120s. No scleral icterus. Dry oral mucosa. Blood pressure is normal 130s over 90s. His heart is regular/tachycardic. Lungs are clear. Diffuse abdominal tenderness without involuntary guarding or rebound. Hypoactive bowel sounds. Differential diagnosis based on history and physical exam, bowel obstruction, acute pancreatitis, hypokalemia, dehydration, alcoholic ketoacidosis. Labs independently reviewed and interpreted by me. His CBC shows a white count of 11.7 with a hemoglobin of 16.8, hematocrit of 48, platelet count of 247. Chem-12 shows a sodium of 142, potassium of 3.6, chloride of 96, bicarb of 16. BUN is 15 creatinine 1.01, glucose is 82. Liver functions are within normal range except for his AST which is slightly elevated at 67. ALT is 52. Lipase is within normal range. Patient is treated in the emergency department with a liter of lactated Ringer's, 12.5 mg of Phenergan and 8 mg of Zofran. He felt much better after these medications. His vital signs improved. Heart rate down to 79 at discharge. Strongly advised to discontinue alcohol use. He was given referral information for support for alcohol addiction. Prescriptions for nausea and also protonix. Recommended to follow-up with the primary care provider. Return precautions given in both verbal and written format. All questions are sought and answered. Departure Impression Primary Impression: Nausea and vomiting Qualified Codes: R11.2 - Nausea with vomiting, unspecified Additional Impression: Alcoholic gastritis Qualified Codes: K29.20 - Alcoholic gastritis without bleeding Disposition: HOME, SELF-CARE Condition: Improved Departure-Patient Inst. Decision time for Depature: 06:15 Referrals: [facility]/RITA BENITEZ,LOCAL PHYSICIAN (PCP) Primary Care Physician Patient Instructions: Nausea and Vomiting, Adult ED, Alcohol Use Disorder ED Add. Discharge Instructions: Adult [facility] [address], [place] [id number] Please reach out for support in order to stop drinking. Zofran 4mg every 8 hours as needed for nausea and vomiting. Take protonix 40mg once a day. Please follow up with a primary care doctor next week. Return to the Emergency Department for any new, concerning or emergent complaints. Scripts Pantoprazole Sodium (Protonix) 40 Mg Tablet.dr 40 MG PO DAILY for 30 Days, #30 TAB Prov: YASMANY DAVID MD 05/06/23 Ondansetron (Ondansetron Odt) 4 Mg Tab.rapdis 4 MG SL Q8H PRN for NAUSEA/VOMITING, #12 TAB Prov: YASMANY DAVID MD 05/06/23 YASMANY DAVID MD May 06, 2023 03:37
[2023-05-06 03:50] LABS: BASOPHILS # (AUTO) 0.1 10^3/uL (0.0-0.1); BASOPHILS % (AUTO) 0 % (0-10); EOSINOPHILS % (AUTO) 0 % (0-10); HEMATOCRIT 48 % (40-54); HEMOGLOBIN 16.8 g/dL (13.3-17.7); LYMPHOCYTES # (AUTO) 2.9 10^3/uL (1.0-4.0); LYMPHOCYTES % (AUTO) 25 % (12-44); MEAN CORPUSCULAR HEMOGLOBIN 31 pg (25-34); MEAN CORPUSCULAR HGB CONC 35 g/dL (32-36); MEAN CORPUSCULAR VOLUME 89 fL (80-99); MEAN PLATELET VOLUME 10.1 fL (9.0-12.2); MONOCYTES # (AUTO) 0.7 10^3/uL (0.0-1.0); MONOCYTES % (AUTO) 6 % (0-12); NEUTROPHILS # (AUTO) 8.1 10^3/uL (1.8-7.8); NEUTROPHILS % (AUTO) 69 % (42-75); PLATELET COUNT 247 10^3/uL (130-400); WHITE BLOOD COUNT 11.7 10^3/uL (4.3-11.0)
[2023-05-06 03:54] LABS: ALBUMIN 4.9 GM/DL (3.2-4.5)
[2023-05-06 03:55] LABS: CHLORIDE 96 MMOL/L (98-107); POTASSIUM 3.6 MMOL/L (3.6-5.0); SODIUM 142 MMOL/L (135-145)
[2023-05-06 03:56] LABS: CALCIUM 8.9 MG/DL (8.5-10.1)
[2023-05-06 03:57] LABS: GLUCOSE 82 MG/DL (70-105); TOTAL PROTEIN 7.7 GM/DL (6.4-8.2)
[2023-05-06 03:58] LABS: CARBON DIOXIDE 16 MMOL/L (21-32)
[2023-05-06 03:59] LABS: BILIRUBIN,TOTAL 0.7 MG/DL (0.1-1.0)
[2023-05-06] MEDS ORDERED: PROMETHAZINE INJ 25 MG/ML (PHENERGAN) AMP IVP ONE (04:00)
[2023-05-06 04:01] LABS: ALKALINE PHOSPHATASE 93 U/L (40-136); CREATININE SERUM 1.01 MG/DL (0.60-1.30); GFR ESTIMATED 100
[2023-05-06 04:02] LABS: BUN/CREATININE RATIO 15
[2023-05-06 04:04] LABS: ALANINE AMINOTRANSFERASE 52 U/L (0-55); LIPASE 26 U/L (8-78)
[2023-05-06] MEDS ORDERED: ONDANSETRON 4 MG/2 ML (SDV) Z0FRAN IVP ONE (05:30)
[2023-05-06] MEDS ORDERED: LACTATED RINGERS 1,000 ML IV SCH (05:30)
[2023-05-06] MEDS ORDERED: ONDA4TAB11 SL (06:17)
[2023-05-06] MEDS ORDERED: PANT40TA2 PO (06:17)
[2023-05-06 07:15] VITALS: BP 134/75
== END 2023-05-06 07:16 | disposition home or self-care (01) ==
LOC: EDUNIT# 03:32 → ER 03:34
DX: K29.20 Alcoholic gastritis without bleeding (principal); F10.10 Alcohol abuse, uncomplicated; R74.8 Abnormal levels of other serum enzymes; R00.0 Tachycardia, unspecified; Z28.311 Partially vaccinated for COVID-19
CPT/HCPCS: 36415; 80053; 83690; 85025

== ENCOUNTER 2023-10-16 08:08 | Emergency (ER) | payer OTHER ==
[~2023-10-16] VITALS: Ht 185 cm; Wt 77.0 kg
[~2023-10-16 08:08] MED LIST changes: +ONDA4TAB11 SL; +PANT40TA2 PO
--- NOTE | 2023-10-16 08:32 | ED Upper Extremity ---
General Chief Complaint: Upper Extremity Stated Complaint: LEFT SHOULDER PAIN Nursing Triage Note: PT PRESENTS TO ED VIA POV FROM HOME WITH COMPLAINTS OF L SHOULDER PAIN WITH LIFTING/RAISING UPPER ARM SINCE YESTERDAY. 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 Source: patient Exam Limitations: no limitations (ESTEVAN MAHARAJ) History of Present Illness Date Seen by Provider: Oct 16, 2023 Time Seen by Provider: 08:24 Initial Comments 33 YO male presents to ED c/o left shoulder pain, onset x 3 hours ago. Pt reports he started a new job at [employer] and noticed left shoulder soreness yesterday. States this morning he dropped a box due to sharp pain of left lateral shoulder. His boss recommended he be seen in the ED. States his pain is minimal at rest but increases to 5-6/10 with movement, especially overhead. He denies trauma or direct blow to shoulder. Denies fever, chills, N/V, or any other sx. Onset: just prior to arrival, this morning Pain/Injury Location: left shoulder Method of Injury: other (overuse ) Modifying Factors: Improves With Movement, Improves With Rest (ESTEVAN MAHARAJ) Allergies and Home Medications Allergies Coded Allergies: No Known Drug Allergies (Unverified , 09/11/21) Patient Home Medication List Home Medication List Reviewed: Yes (ESTEVAN MAHARAJ) Famotidine (Pepcid) 20 Mg Tablet, 20 MG PO BID Prescribed by: ANDREW TUCKER on 02/10/23916 Gabapentin (Neurontin) 300 Mg Capsule, 300 MG PO BID Prescribed by: ANDREW TUCKER on 02/10/23916 Gabapentin (Neurontin) 300 Mg Capsule, 300 MG PO BID Prescribed by: MINERVA OBRIEN MD on 03/22/231838 Mirtazapine (Mirtazapine) 30 Mg Tablet, 15 MG PO HS Prescribed by: ANDREW TUCKER on 02/10/23916 Mirtazapine (Mirtazapine) 15 Mg Tablet, 15 MG PO HS Prescribed by: MINERVA OBRIEN MD on 03/22/231838 Multivitamin (Multivitamin) 1 Each Tablet, 1 EACH PO DAILY Prescribed by: ANDREW TUCKER on 02/10/23916 Ondansetron (Ondansetron Odt) 4 Mg Tab.rapdis, 4 MG SL Q8H PRN for NAUSEA/VOMITING Prescribed by: YASMANY DAVID on 05/06/23616 Pantoprazole Sodium (Protonix) 40 Mg Tablet.dr, 40 MG PO DAILY Prescribed by: YASMANY DAVID on 05/06/23616 Review of Systems Constitutional: No chills, No diaphoresis, No fever EENTM: No blurred vision, No double vision Respiratory: No cough, No dyspnea on exertion Cardiovascular: No chest pain Gastrointestinal: No diarrhea, No nausea, No vomiting Genitourinary: No decreased output, No dysuria Musculoskeletal: No back pain, No joint swelling, No muscle twitching; other (left shoulder pain) Skin: No change in color, No change in hair/nails Psychiatric/Neurological: Anxiety (chronic); Denies Headache, Denies Numbness, Denies Weakness (ESTEVAN MAHARAJ) All Other Systems Reviewed Negative Unless Noted: Yes (ESTEVAN MAHARAJ) Past Xoeyswr-Kahswi-Tswjiq Hx Patient Social History Tobacco Use?: Yes Smoking Status: Current Everyday Smoker Substance use?: No Alcohol Use?: Yes Alcohol Frequency: Couple times a week Pt feels they are or have been: No (ESTEVAN MAHARAJ) Immunizations Up To Date First/Initial COVID19 Vaccinat: X1 Second COVID19 Vaccination Elliot: X1 Third COVID19 Vaccination Date: X1 (ESTEVAN MAHARAJ) Past Medical History Surgery/Hospitalization HX: ANXIETY, DEPRESSION, HTN, ETOH ABUSE Surgeries: No Respiratory: No Cardiac: No Neurological: No Genitourinary: No Gastrointestinal: No Musculoskeletal: No Endocrine: No HEENT: No Loss of Vision: Denies Hearing Impairment: Denies Cancer: No Psychosocial: Yes (ALCOHOLISM; SUICIDAL IDEATION WITH INTOXICATION) Anxiety, Depression Integumentary: No Blood Disorders: No (ESTEVAN MAHARAJ) Family Medical History Diabetes (ESTEVAN MAHARAJ) Physical Exam Vital Signs Vital Signs - First Documented 10/16/23 08:21 Temp 36.3 Pulse 95 Resp 14 B/P (MAP) 145/81 (102) Pulse Ox 98 (CAMILLE,MINERVA L DO) Vital Signs Capillary Refill : Less Than 3 Seconds (ESTEVAN MAHARAJ) Height, Weight, BMI Height: '" Weight: lbs. oz. kg; 22.00 BMI Method: General Appearance: WD/WN, no apparent distress HEENT: PERRL/EOMI, normal ENT inspection Neck: non-tender, full range of motion, supple, normal inspection Cardiovascular: regular rate, rhythm, no edema, no gallop, no JVD, no murmur Respiratory: chest non-tender, no respiratory distress, no accessory muscle use Gastrointestinal: non tender, soft Back: normal inspection, no vertebral tenderness Shoulder: No bone tenderness, No deformity, No ecchymosis; limited ROM (limited abduction above 90 degrees), pain (pain to deep palpation of left lateral shoulder ); No swelling Elbow/Forearm: normal inspection, non-tender, no evidence of injury, normal ROM Wrist: Yes normal inspection, Yes non-tender, Yes no evidence of injury, Yes normal ROM Hand: normal inspection, non-tender, no evidence of injury, normal ROM Neurologic/Tendon: normal sensation, normal motor functions, responds to pain; No motor deficit, No sensory deficit Neurologic/Psychiatric: no motor/sensory deficits, alert, normal mood/affect, oriented x 3 Skin: normal color, warm/dry Lymphatic: no adenopathy (ESTEVAN MAHARAJ) Progress/Results/Core Measures Results/Orders Vital Signs/I&O 10/16/23 08:21 Temp 36.3 Pulse 95 Resp 14 B/P (MAP) 145/81 (102) Pulse Ox 98 (CAMILLEMINERVA DO) Blood Pressure Mean: 102 Progress Progress Note : Time: 08:34 Progress Note Pt presented with left shoulder pain after starting a new job, most consistent with an overuse injury of rotator cuff muscles. Pt vitals requiring no intervention. Exam remarkable for deep palpation overlying left lateral shoulder, particularly in the bicipital groove. He has decreased abduction past 90 degrees. DDx includes rotator cuff injury, strain, vs others. No indication for imaging at this time as he had no injury or direct blow. Discussed clinical exam and plan with patient who agrees with plan for d/c. Recommended he rest, ice, use ibuprofen, and perform stretches of his shoulder. Pt is agrees and stable for d/c. (ESTEVAN MAHARAJ) Departure Communication (Admissions) Patient is hemodynamically stable, neurovascular and sensory intact. He has normal axillary sensation, normal strength. He has pain with any range of motion above 90 degrees. This is consistent with a strain of his rotator cuff, shoulder girdle. He has no other evidence of an acute medical condition at this time. No indication for imaging with no injury and no bony tenderness. He will be discharged home in stable condition with close primary care follow-up. (MINERVA OBRIEN DO) Impression Primary Impression: Left shoulder strain Qualified Codes: S46.912A - Strain of unspecified muscle, fascia and tendon at shoulder and upper arm level, left arm, initial encounter Disposition: HOME, SELF-CARE Condition: Stable Departure-Patient Inst. Referrals: NO,LOCAL PHYSICIAN (PCP/Family) Primary Care Physician Patient Instructions: Active Range of Motion Exercises, Neck and Shoulders, Muscle Strain (DC) Add. Discharge Instructions: As discussed this is likely an overuse injury, strain. Please use anti- inflammatory medication such as Naprosyn or ibuprofen. I recommend you take Naprosyn 500 mg twice a day for the next 2 days and then as needed. Rest the shoulder when able. Perform range of motion exercises as recommended. Return to the emergency department for any severe concerns. Follow-up your primary doctor should your symptoms persist or become more chronic in nature. All discharge instructions reviewed with patient and/or family. Voiced understanding. ESTEVAN MAHARAJ Oct 16, 2023 08:32 MINERVA OBRIEN DO Oct 16, 2023 08:41
[2023-10-16 08:56] VITALS: BP 145/81
== END 2023-10-16 08:56 | disposition home or self-care (01) ==
LOC: EDUNIT# 08:08 → ER 08:10
DX: S46.912A Strain of unspecified muscle, fascia and tendon at shoulder and upper arm level, left arm, initial encounter (principal); F17.200 Nicotine dependence, unspecified, uncomplicated; X50.0XXA Overexertion from strenuous movement or load, initial encounter
CPT/HCPCS: 99281